=== PATIENT | male | born 1935 | race Caucasian/White ===

== ENCOUNTER 2016-05-19 14:39 | Emergency (ER) | payer MEDICARE ==
[~2016-05-19 14:39] MED LIST: AMOX-366 PO; HAL05 PO; OXYC5TAB72 PO
--- NOTE | 2016-05-19 14:40 | ED.REPORT ---
HPI-General Illness Date of Service May 19, 2016 ED Provider: Lenora Perdomo MD 80 year old male with a hx of Alzheimer's Disease who presents to the ED via EMS due to increased confusion. History is severely limited. Pt was sent with no description other than "increased confusion". He is unable to provide any history and is disoriented to place, time and person. Nursing Notes Stated Complaint: INCREASED CONFUSION Nursing Notes Reviewed: Yes Allergies: Coded Allergies: No Known Allergies (Unverified , 04/12/16) Scheduled Haloperidol (Haloperidol) 0.5 Mg Tablet 0.5 MG PO BID Scheduled PRN Acetaminophen (Acetaminophen) 325 Mg Tablet 650 MG PO Q4H PRN PRN For Pain oxyCODONE (oxyCODONE) 5 Mg Tablet 5 MG PO Q4H PRN PRN For Moderate Pain General Time Seen by MD: 14:40 Chief Complaint Altered mental status Hx Obtained From: Patient, EMS Unable to Obtain Hx: Mental status Arrived By: Ambulance Past Medical History Past Medical History Alzheimer's Disease Past Surgical History Laparscopic cholecystectomy Mar 2016, otherwise unknown Smoking History Former Smoker Social History Other Social History: Lives in jail Ambulatory Status Independent Review of Systems Unable to Obtain ROS Mental status Full Review of Systems Neurologic: Reports: Confusion Physical Exam Vital Signs Vital Signs Date Time Temp Pulse Resp B/P Pulse Ox O2 Delivery O2 Flow Rate FiO2 05/19/16 14:48 36.3 75 17 161/61 97 Room Air Initial VS: Reviewed Head / Eyes: Atraumatic, Normocephalic, PERRL ENT: Conjunctiva normal, No scleral icterus Neck: Full range of motion Respiratory: Breath sounds normal, Clear to auscultation, No respiratory distress Cardiovascular: Regular rate & rhythm, Heart sounds normal, Intact distal pulses Abdomen / GI: Soft, Non-tender, No guarding, No rebound, No distention Extremities: Vascular intact, Neuro intact, No swelling, No tenderness ( eczematous patches to legs. ) Skin: Warm, Dry, No cyanosis General/Constitutional: Awake, Alert Neurologic: No motor deficits Mental Status: Positive: Disoriented to person, Disoriented to place, Disoriented to time Cantankerous and can get combative. Can be calmed and redirected. Interpretation & Diagnostics Lab Results Interpretation Result Diagram: 05/19/16 1530 05/19/16 1530 Test 05/19/16 15:30 05/19/16 15:39 White Blood Count 8.7th/mm3 (3.8-10.1) Red Blood Count 4.31mil/mm3 (4.40-5.80) Hemoglobin 13.9g/dL (13.8-17.2) Hematocrit 40.3% (41.0-50.0) Mean Corpuscular Volume 93.5fL (81-100) Mean Corpuscular Hemoglobin 32.3pg (27.0-35.0) Mean Corpuscular Hemoglobin Concent 34.5% (32.0-37.0) Red Cell Distribution Width 13.7% (12.3-15.4) Platelet Count 208bil/L (150-400) Neutrophils (%) (Auto) 59.9% (40-74) Lymphocytes (%) (Auto) 24.4% (14-46) Monocytes (%) (Auto) 9.0% (4-12) Eosinophils (%) (Auto) 5.9% (0-5) Basophils (%) (Auto) 0.6% (0-3) Sodium Level 139mEq/L (134-144) Potassium Level 4.3mEq/L (3.5-5.2) Chloride Level 102mEq/L (97-108) Carbon Dioxide Level 22mmol/L (18-29) Blood Urea Nitrogen 18mg/dL (8-27) Creatinine 0.81mg/dL (0.76-1.27) Estimat Glomerular Filtration Rate 98mL/min (>59) Glucose Level 103mg/dL (60-99) Calcium Level 9.1mg/dL (8.5-10.1) Total Bilirubin 0.4mg/dL (0.0-1.2) Aspartate Amino Transf (AST/SGOT) 18U/L (0-50) Alanine Aminotransferase (ALT/SGPT) 16U/L (0-44) Alkaline Phosphatase 105U/L (25-160) Total Protein 6.9g/dL (6.4-8.4) Albumin 4.1g/dL (3.4-5.0) Hold Sheikh Top Tube Received (Received) Urine Color Yellow (YELLOW) Urine Appearance Clear (CLEAR,HAZY) Urine pH 6.5 (5.0-8.0) Urine Specific [place] 1.025 (1.003-1.035) Urine Protein Negativemg/dL (NEG,TRACE) Urine Glucose (UA) Negativemg/dL (NEGATIVE) Urine Ketones Negativemg/dL (NEGATIVE) Urine Occult Blood Negative (NEGATIVE) Urine Nitrite Negative (NEGATIVE) Urine Bilirubin Negative (NEGATIVE) Urine Urobilinogen Normalmg/dL (NORMAL) Urine Leukocyte Esterase Negative (NEGATIVE) Urine RBC 0-2/hpf (0-2) Urine WBC 0-5/hpf (0-5) Urine Epithelial Cells Few/hpf (NONE-MOD) Urine Crystals None seen (NONE SEEN) Urine Bacteria Few/hpf (NONE-FEW) Urine Hyaline Casts None/lpf (NONE) Urine Granular Casts None seen (NONE SEEN) Urine Waxy Casts None seen (NONE SEEN) Urine Red Blood Cell Casts None seen (NONE SEEN) Urine White Blood Cell Casts None seen (NONE SEEN) Urine Mucus None seen (None Seen) Urine Trichomonas None seen (NONE SEEN) Urine Yeast None (NONE SEEN) Urinalysis Comment None Urine Culture Reflexed Not indicated Re-Eval/Medical Decision Time of Eval: 16:42 Re-Evaluation/Progress Note: Discussed plan for discharge and follow up. All questions addressed. Counseled Regarding: Diagnosis, Lab results, Need for follow-up, Need for admission Discharge & Departure Primary Impression: Dementia Dementia type: Alzheimer's disease Alzheimer's disease onset: unspecified onset Dementia behavioral disturbance: with behavioral disturbance Qualified Code: G30.8 - Other Alzheimer's disease Additional Impression: Agitation Disposition: Home Discharge Condition All VS Reviewed: Yes Condition: Stable Additional Instructions: Your workup today showed no medical abnormalities. Specifically, no evidence of infection, pneumonia, bladder infection, or stroke. Given 5 mg of IM Haldol. At this point the best explanation for the increased agitation is your baseline dementia. I do not have any additional options for you at this point. We will hope you get back to your memory care unit. I hope you do well. Referrals: NOPCP (PCP) Scribe Attestation Portions of this note were transcribed by Nallely Willingham. I, (Dr. Perdomo) personally performed the history, physical exam and medical decision-making; I reviewed and confirmed the accuracy of the information in the transcribed note. Signed by: Nallely Willingham. 05/19/2016, 2114 Lenora Perdomo MD May 19, 2016 14:40 Nallely Willingham May 19, 2016 14:56
[2016-05-19 14:48] VITALS: BP 161/61; PULSE 75; RESP 17; O2SAT 97
[2016-05-19] MEDS ORDERED: Haloperidol 5 mg/mL Inj IM ONE (15:20)
[2016-05-19 15:40] LABS: BASOPHILS % (AUTO) 0.6 % (0-3); EOSINOPHILS % (AUTO) 5.9 % (0-5); Mean Corpuscular Hemoglobin 32.3 pg (27.0-35.0); Mean Corpuscular Volume 93.5 fL (81-100); NEUTROPHILS % (AUTO) 59.9 % (40-74); Platelet Count 208 bil/L (150-400)
[2016-05-19 15:52] LABS: APPEARANCE,URINE CLEAR (CLEAR,HAZY); COLOR,URINE YELLOW (YELLOW); OCCULT BLOOD,URINE NEGATIVE (NEGATIVE); PH,URINE 6.5 (5.0-8.0); UROBILINOGEN,URINE NORMAL (NORMAL)
[2016-05-19] MEDS ORDERED: ACET325T51 PO (16:16)
[2016-05-19 18:19] VITALS: BP 156/62; PULSE 71; RESP 17; O2SAT 98
== END 2016-05-19 18:20 | disposition home or self-care (01) ==
LOC: SED 14:39
DX: G30.8 Other Alzheimer's disease (principal); R45.1 Restlessness and agitation; Z87.891 Personal history of nicotine dependence
CPT/HCPCS: 36415; 80053; 81000; 85025; 96372; 99284; J1630

== ENCOUNTER 2016-10-13 10:10 | Inpatient (IN) | payer MEDICARE ==
[2016-10-13] VITALS (14 sets, daily range): BP systolic 101–170; BP diastolic 51–75; PULSE 43–73; RESP 14–31; O2SAT 97–100
[~2016-10-13] VITALS: Ht 170.2 cm; Wt 79.0 kg
[~2016-10-13 10:10] MED LIST changes: +ACET325T51 PO; -AMOX-366 PO
--- NOTE | 2016-10-13 10:13 | ED.REPORT ---
HPI-General Illness Date of Service Oct 13, 2016 ED Provider: Jr Teixeira MD Patient is a 80 year old male with a history of Alzheimer's disease who presents to the ED via EMS due to being apneic and unresponsive. Per EMS, the patient was apneic for 30 seconds at a time with a pulse. Patient did not have pinpoint pupils before EMS arrived. The group home reported that the patient has not been recently sick and has not fallen. Per EMS, they tried to intubate the patient twice prior to arrival to the ED but was unsuccessful so they placed a jn tube. Nursing Notes Stated Complaint: UNRESPONSIVE Nursing Notes Reviewed: Yes Allergies: Coded Allergies: No Known Allergies (Unverified , 04/12/16) Scheduled Polyethylene Glycol 1000 (Polyethylene Glycol) 500 Gm Powder 500 GM MC DAILY Prazosin (Prazosin) 1 Mg Capsule 1 MG PO HS Scheduled PRN Acetaminophen (Acetaminophen) 325 Mg Tablet 650 MG PO Q4H PRN PRN For Pain General Time Seen by MD: 10:18 Chief Complaint Other (apneic) Hx Obtained From: EMS Unable to Obtain Hx: Patient condition Arrived By: Ambulance Sudden in Onset?: Yes Onset Occurred: Just prior to arrival Symptom Duration: Since onset Recent Healthcare: No recent hospitalization, Recent doctor visit Past Medical History Past Medical History Notes: Code status: full code Past Medical History Alzheimer's Disease Past Surgical History Laparscopic cholecystectomy Mar 2016, otherwise unknown Smoking History Former Smoker Social History Other Social History: Lives in group home Ambulatory Status Independent Review of Systems Unable to Obtain ROS Patient condition, Intubated Physical Exam Vital Signs Vital Signs Date Time Temp Pulse Resp B/P Pulse Ox O2 Delivery O2 Flow Rate FiO2 10/13/16 12:22 54 15 138/71 97 Mechanical Ventilator 10/13/16 11:35 34.3 62 16 143/64 98 Mechanical Ventilator 10/13/16 10:40 73 31 170/75 98 Mechanical Ventilator 10/13/16 10:34 98 Initial VS: Reviewed Alertness: Positive: Unresponsive intubated Head / Eyes: Atraumatic, Normocephalic, EOMI pupils 2-3 RESPIRATORY: minimal spontaneous respirations Cardiovascular: Heart rate NL, Regular rhythm, Heart sounds NL Abdomen: Atraumatic, Soft, Non-tender Skin: Atraumatic, Color NL, No rash, Warm, Dry Rectum / Perineum: Atraumatic Guiac positive NEURO: Glascow coma scale: 7 Interpretation & Diagnostics Lab Results Interpretation Result Diagram: 10/13/16 1030 10/13/16 1030 Test 10/13/16 10:30 10/13/16 11:45 White Blood Count 6.2th/mm3 (3.8-10.1) Red Blood Count 4.10mil/mm3 (4.40-5.80) Hemoglobin 13.4g/dL (13.8-17.2) Hematocrit 38.3% (41.0-50.0) Mean Corpuscular Volume 93.4fL (81-100) Mean Corpuscular Hemoglobin 32.7pg (27.0-35.0) Mean Corpuscular Hemoglobin Concent 35.0% (32.0-37.0) Red Cell Distribution Width 12.8% (12.3-15.4) Platelet Count 186bil/L (150-400) Neutrophils (%) (Auto) 56.5% (40-74) Lymphocytes (%) (Auto) 30.5% (14-46) Monocytes (%) (Auto) 7.5% (4-12) Eosinophils (%) (Auto) 4.4% (0-5) Basophils (%) (Auto) 0.6% (0-3) Prothrombin Time 10.6sec (8.1-12.5) Prothromb Time International Ratio 0.99ratio D-Dimer < 0.50mg/L FEU (<0.50) Sodium Level 141mEq/L (134-144) Potassium Level 4.4mEq/L (3.5-5.2) Chloride Level 105mEq/L (97-108) Carbon Dioxide Level 19mmol/L (18-29) Blood Urea Nitrogen 14mg/dL (8-27) Creatinine 0.70mg/dL (0.76-1.27) Estimat Glomerular Filtration Rate 116mL/min (>59) Glucose Level 132mg/dL (60-99) Lactic Acid Level 2.6mmol/L (0.4-2.0) Calcium Level 8.3mg/dL (8.5-10.1) Magnesium Level 1.8mg/dL (1.6-2.6) Total Bilirubin 0.8mg/dL (0.0-1.2) Aspartate Amino Transf (AST/SGOT) 20U/L (0-50) Alanine Aminotransferase (ALT/SGPT) 17U/L (0-44) Alkaline Phosphatase 73U/L (25-160) Troponin T < 0.010ug/L (0.0-0.011) Total Protein 6.5g/dL (6.4-8.4) Albumin 3.8g/dL (3.4-5.0) Urine Color Yellow (YELLOW) Urine Appearance Clear (CLEAR,HAZY) Urine pH 6.5 (5.0-8.0) Urine Specific [place] 1.010 (1.003-1.035) Urine Protein Negativemg/dL (NEG,TRACE) Urine Glucose (UA) Negativemg/dL (NEGATIVE) Urine Ketones Negativemg/dL (NEGATIVE) Urine Occult Blood Small (NEGATIVE) Urine Nitrite Negative (NEGATIVE) Urine Bilirubin Negative (NEGATIVE) Urine Urobilinogen Normalmg/dL (NORMAL) Urine Leukocyte Esterase Negative (NEGATIVE) Urine RBC 3-10/hpf (0-2) Urine WBC 0-5/hpf (0-5) Urine Epithelial Cells Occasional/hpf (NONE-MOD) Urine Crystals None seen (NONE SEEN) Urine Bacteria None/hpf (NONE-FEW) Urine Hyaline Casts Occasional/lpf (NONE) Urine Granular Casts None seen (NONE SEEN) Urine Waxy Casts None seen (NONE SEEN) Urine Red Blood Cell Casts None seen (NONE SEEN) Urine White Blood Cell Casts None seen (NONE SEEN) Urine Mucus Present (None Seen) Urine Trichomonas None seen (NONE SEEN) Urine Yeast None (NONE SEEN) Urinalysis Comment None Urine Culture Reflexed Not indicated Lab Results Interpretation: BLOOD GAS REPORT: pH 7.143/pCO2 31/pO2 106/cHCO3 (P) 19.9/cBase (B) -4.1 ECG Interpretation ECG Interpretation: sinus rhythm with non specific ST changes in the inferior leads no obvious ischemic changes Time: 10:26 Interpreted by: ED physician Normal ECG Interpretation: Normal rate (70) X-Ray Chest Interpretation Chest Xray Interpretation: IMPRESSION: 1. Endotracheal tube tip approximately 3 cm from the natasha. 2. Patchy peripheral left basilar opacities are nonspecific but may reflect pneumonia or aspiration. Recommend attention on followup. Dictated by: Ryan Welch M.D. on 10/13/2016 at 10:57 Approved by: Ryan Welch M.D. on 10/13/2016 at 11:03 View: Portable, 1 view Interpretation / Wet Read by: Interpret - Radiologist CT Head Interpretation IMPRESSION: 1. No acute process. 2. Sinus disease. Dictated by: Lucas Ruiz M.D. on 10/13/2016 at 10:56 Approved by: Lucas Ruiz M.D. on 10/13/2016 at 10:57 Interpretation / Wet Read by: Interpret - Radiologist Re-Eval/Medical Decision Med Decision/Clinical Course Patient arrives sedated with a [place] Coma Scale of 7, reportedly having an apneic and unresponsive at his care facility. Initial bedside evaluation failed to show any obvious abnormality with the exception of the Jn airway in the oropharynx. Pupils are equal and symmetric, is no evidence of trauma. His Jn airway is exchanged for a cuffed endotracheal tube via glide scope. There may be evidence of aspiration pneumonia and possibly GI bleed. He does have a guaiac positive brown stool in scant amount of blood via the NG tube. Workup is really otherwise not remarkable. He will be admitted to intensive care. 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: Agrees with eval, Agrees with plan, Accepts admit Counseled Regarding: Diagnosis, Lab results, Need for admission Discharge & Departure Primary Impression: Respiratory failure Chronicity: unspecified Respiratory failure complication: unspecified whether with hypoxia or hypercapnia Qualified Code: J96.90 - Respiratory failure, unspecified, unspecified whether with hypoxia or hypercapnia Additional Impressions: Aspiration pneumonia Aspiration pneumonia type: unspecified Laterality: unspecified laterality Lung location: unspecified part of lung Qualified Code: J69.0 - Pneumonitis due to inhalation of food and vomit Altered level of consciousness Disposition: ADMITTED TO HOSPITAL Discharge Condition All VS Reviewed: Yes Condition: Stable Crit Care Except Billable Proc Time Spent: 75-104 minutes Services Performed: Patient management by me, Time spent at bedside, Reviewing test results, Reviewing imaging, Documentation in record Critical Care Notes: See MDM Scribe Attestation Portions of this note were transcribed by Luna Gamble. I, Dr. Veronica So personally performed the history, physical exam and medical decision-making; I reviewed and confirmed the accuracy of the information in the transcribed note. Signed by: Ulises Floyd, 10/13/16 and Jr Bergman DO Oct 13, 2016 10:13 Vira Gamble Oct 13, 2016 10:24
[2016-10-13] MEDS ORDERED: 0.9% Sodium Chloride 1,000 ML IV ONE (10:28)
[2016-10-13] MEDS ORDERED: Propofol 10 mg/mL 20 mL Inj ONE (10:28)
[2016-10-13] MEDS: 0.9% Sodium Chloride 1,000 ML IV SCH ×4 (10:30→19:55)
[2016-10-13 10:56] LABS: BASOPHILS % (AUTO) 0.6 % (0-3); EOSINOPHILS % (AUTO) 4.4 % (0-5); MONOCYTES % (AUTO) 7.5 % (4-12); Mean Corpuscular Hemoglobin 32.7 pg (27.0-35.0); Mean Corpuscular Volume 93.4 fL (81-100); NEUTROPHILS % (AUTO) 56.5 % (40-74); Platelet Count 186 bil/L (150-400)
--- NOTE | 2016-10-13 10:58 | DRSVH ---
PROCEDURE: CT BRAIN WITHOUT CONTRAST ([id number]) INDICATIONS: aloc TECHNIQUE: Noncontrast 4.5 mm thick angled axial sections acquired from the foramen magnum to the vertex, with c oronal reformats. COMPARISON: None. FINDINGS: Image quality: Excellent. CSF spaces: Basal cisterns are patent. No extra-axial fluid collections. The ventricles are symmet padmaja in size and shape. Brain: No intracranial bleeds or masses. There is cerebral volume loss for age, with resultant vent ricular and sulcal prominence. 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 There are p eriventricular and deep white matter chronic small vessel ischemic changes. There is intracranial in ternal carotid artery atherosclerosis. Skull and face: Calvarium and visualized facial bones appear intact, without suspicious lesions. Sinuses: There is moderate bilateral ethmoid air cell mucosal thickening. Mild sphenoid sinus mucosal thickening. Mastoids are clear. IMPRESSION: 1. No acute process. 2. Sinus disease. Dictated by: Lucas Ruiz M.D. on 10/13/2016 at 10:56 Approved by: Lucas Ruiz M.D. on 10/13/2016 at 10:57
--- NOTE | 2016-10-13 11:04 | DRSVH ---
PROCEDURE: X-RAY CHEST ONE VIEW, PORTABLE ([id number]) INDICATIONS: resp failure TECHNIQUE: One view of the chest was acquired. COMPARISON: [facility], CR, XR CHEST 1VW (PORTABLE), 04/12/2016, 11:46. FINDINGS: Surgical changes and devices: There is an endotracheal tube with the tip approximately 3 cm from the natasha. Lungs and pleura: No pleural effusions or pneumothorax. There are few patchy peripheral left basila r opacities. Mediastinum: Mediastinal contours appear unchanged. Heart size is normal. Bones and chest wall: No suspicious bony lesions. Overlying soft tissues appear unremarkable. IMPRESSION: 1. Endotracheal tube tip approximately 3 cm from the natasha. 2. Patchy peripheral left basilar opacities are nonspecific but may reflect pneumonia or aspiration. Recommend attention on followup. Dictated by: Ryan Welch M.D. on 10/13/2016 at 10:57 Approved by: Ryan Welch M.D. on 10/13/2016 at 11:03
[2016-10-13] MEDS ORDERED: levoFLOXacin Inj 750 MG in IV Premix 1 EACH IV ONE (11:05)
[2016-10-13] MEDS ORDERED: Piperacillin-Tazo 3.375 Gm Inj 3.375 GM in Dextrose 5% Minibag Plus 50 ML IV ONE (11:05)
[2016-10-13 11:06] LABS: D-Dimer < 0.50 mg/L FEU (<0.50); INR 0.99 ratio
[2016-10-13] MEDS ORDERED: PRAZ1CAP2 PO (11:07)
[2016-10-13] MEDS ORDERED: POLY454P4 MC (11:07)
--- NOTE | 2016-10-13 11:11 | ABG ---
DateTimeAnalyzed 11:03:43 -_ pH ____7.413 - 7.350 7.450 pCO2 ___31.2__ -mmHg 35.0 45.0 pO2 106 -mmHg 69.0 116 HCO3- ___19.9__ -mmol/L 22.0 26.0 ABE ___-4.1__ -mmol/L tHb ___13.5__ -g/dL O2Hb ___97.9__ -% COHb ____1.8__ -% 1.5 MetHb ____0.0__ -% sO2 ___99.6__ -% FIO2 ___21.0__ -% Drawn By btl - Date/Time Notified____ 11:10:00 -_ Oxygen Device 1 VENTILATOR - Notified By BTL - Notified Whom ___Dr. O'sivan - K+ ____4.3__ -mmol/L tO2 ___18.7__ -Vol% Ugo test N/A -
[2016-10-13 11:34] LABS: Magnesium 1.8 mg/dL (1.6-2.6)
[2016-10-13 11:40] LABS: TROPONIN T < 0.010 ug/L (0.0-0.011)
[2016-10-13] MEDS ORDERED: Pantoprazole 4 mg/mL 10 mL Inj IVPUSH ONE (11:55)
[2016-10-13] MEDS ORDERED: Pantoprazole Inj 80 MG, Pharmacy To Mix 1 EA in 0.9% Sodium Chloride 80 ML IV ONE ×2 (11:55)
[2016-10-13 12:18] LABS: APPEARANCE,URINE CLEAR (CLEAR,HAZY); COLOR,URINE YELLOW (YELLOW); OCCULT BLOOD,URINE SMALL (NEGATIVE); PH,URINE 6.5 (5.0-8.0)
[2016-10-13 12:19] LABS: UROBILINOGEN,URINE NORMAL (NORMAL)
[2016-10-13] MEDS ORDERED: Succinylcholine Chloride 20 mg/mL 5 mL Inj IVPUSH ONE (12:39)
[2016-10-13] MEDS ORDERED: Senna-Docusate 8.6-50 mg Tablet PO PRN (12:45)
[2016-10-13] MEDS ORDERED: Alum-Mag Hydrox-Simeth 30 mL Suspension PO PRN (12:45)
[2016-10-13] MEDS ORDERED: Ondansetron 2 mg/mL 2 mL Inj IVPUSH PRN (12:45)
[2016-10-13] MEDS ORDERED: Polyethylene Glycol (PEG) 17 Gm Powder PO PRN (12:45)
--- NOTE | 2016-10-13 13:44 | DRSVH ---
PROCEDURE: X-RAY CHEST ONE VIEW, PORTABLE ([id number]) INDICATIONS: Post intubation to verify ETT placement TECHNIQUE: One view of the chest was acquired. COMPARISON: [facility], CR, XR CHEST 1VW (PORTABLE), 10/13/2016, 10:30. FINDINGS: Surgical changes and devices: Endotracheal tube with the tip approximately 3-4 cm above the natasha. E nteric tube with the tip not included on the study however below the gastroesophageal junction Lungs and pleura: No pleural effusions or pneumothorax. Streaky retrocardiac opacities. Lung volume s are decreased. Mediastinum: Mediastinal contours appear normal. Heart size is normal. Bones and chest wall: No suspicious bony lesions. Overlying soft tissues appear unremarkable. IMPRESSION: Streaky retrocardiac opacities possibly aspiration/atelectasis. Endotracheal tube with the tip approximately 3-4 cm above the natasha Dictated by: Levi Vargas M.D. on 10/13/2016 at 13:41 Approved by: Levi Vargas M.D. on 10/13/2016 at 13:42
[2016-10-13] MEDS ORDERED: Vancomycin Inj 1,500 MG in 0.9% Sodium Chloride 500 ML IV ONE (14:15)
--- NOTE | 2016-10-13 14:16 | ABG ---
DateTimeAnalyzed 14:09:00 -_ pH ____7.412 - 7.350 7.450 pCO2 ___31.1__ -mmHg 35.0 45.0 pO2 146 -mmHg 69.0 116 HCO3- ___19.4__ -mmol/L 22.0 26.0 ABE ___-3.8__ -mmol/L -2.0 2.0 tHb ___12.7__ -g/dL O2Hb ___97.3__ -% COHb ____1.1__ -% MetHb ____1.1__ -% sO2 ___99.5__ -% 25.0 FIO2 ___50.0__ -% PEEP ____5.0__ -cmH2O Vt __500.0__ -L Drawn By as - Date/Time Notified____ 14:16:00 -_ Spontaneous_RR ___16.0__ -b/min Oxygen Device 1 VENTILATOR - Notified By AMS - Notified Whom LIA COTTON, RN - B 755 -mmHg tO2 ___17.6__ -Vol% Ugo test _Positive -
[2016-10-13] MEDS: fentaNYL 2,500 mCg/250 mL 2,500 MCG in IV Premix 1 EACH IV SCH (15:00)
[2016-10-13] MEDS ORDERED: Atropine 1 mg/10 mL (Code) Syringe IVPUSH PRN (16:00)
[2016-10-13] MEDS ORDERED: Dexmedetomidine Inj 400 MCG in 0.9% Sodium Chloride 100 ML IV SCH (16:27)
--- NOTE | 2016-10-13 17:08 | PCM.HPMED ---
Subjective Date of Service Oct 13, 2016 Primary Provider: Admitting Physician: Iain Pritchett MD Primary Care Physician: Camilo Attending Physician: Iain Pritchett MD Admit Status: From the Emergency Department Chief Complaint: unresponsive History of Present Illness: Mr. Song Nunez is a 80 year old man with history of Alzheimer's disease who presented to the emergency department via emergency medical services (EMS) due to being found unresponsive and not breathing. It was reported that he was apneic for 30 seconds at a time with a pulse. He did not have pinpoint pupils before EMS arrived. The shelter, [facility], reported that the patient was not recently sick and had not recently fallen. EMS tried to intubate he patient twice but were unsuccessful so a Jn tube was placed. In the emergency department, his Glascow score was 7, and he had an endotracheal tube placed via glide scope. He had a positive guaiac stool, and there was a scant amount of blood in the nasogastric tube. History obtained from medical records because patient is intubated and sedated at time of interview Review of Systems: Unable to obtain, patient is sedated and intubated Allergies Coded Allergies: No Known Allergies (Unverified , 04/12/16) Home Medications Medication RX elsewhere Directions clobetasol 0.05 % topical cream Y apply by topical route 2 times every day a thin layer to the affected area(s) Medication Directions acetaminophen 325 mg capsule Take 2 capsule by oral route every 8 hrs prazosin 1 mg capsule take 1 capsule by oral route every bedtime polyethylene glycol 3350 17 gram/dose oral powder take (17G) by oral route every day mixed with 8 oz. water, juice, soda, coffee or tea Ultra-Light Rollator misc 1 four-wheeled walker with brakes PMH From the patient's medical records: Alzheimer's dementia with behavioral disturbance Surgical History ERCP, biliary sphincterotomy, and stone extraction on 04/12/16 Laparoscopic cholecystectomy on 04/14/16 Family History No significant family history in medical records Unable to obtain due to patient being intubated and sedated Social History Hx Alcohol Use: No Hx Substance Use: No Smoking Status: Former Smoker Living Arrangement: Other (shelter) Exam Vital Signs Vital Sign - Last Date Time Temp Pulse Resp B/P Pulse Ox O2 Delivery O2 Flow Rate FiO2 6/1/17 16:08 48 101/51 99 25 10/13/16 16:00 36.4 16 Mechanical Ventilator Exam General: Elderly gentleman who is currently intubated and sedate, well-developed , well-nourished HEENT: Normocephalic, atraumatic. External ears without defect. Anicteric sclerae, moist conjunctivae. Neck: Supple. No bruits. No lymphadenopathy or thyromegaly. Cardiovascular: Bradycardic with a regular rhythm with no murmurs, rubs, or gallops appreciated Pulmonary: Breath sounds equal bilaterally. Scattered crackles bilaterally. Abdomen: Bowel tones present. Soft, nondistended. No hepatosplenomegaly or masses appreciated. Extremities: No clubbing, cyanosis, edema, or lymphadenopathy appreciated. Skin: Cool and dry; no rash or ulcers appreciated. Neurological and psychiatric: Sedated. Lab and Diagnostics Result Diagram: 10/13/16 1410 10/13/16 1030 X-Rays, CTs and MRIs PROCEDURE: X-RAY CHEST ONE VIEW, PORTABLE IMPRESSION: 1. Endotracheal tube tip approximately 3 cm from the natasha. 2. Patchy peripheral left basilar opacities are nonspecific but may reflect pneumonia or aspiration. Recommend attention on followup. Approved by: Ryan Welch M.D. on 10/13/2016 at 11:03 PROCEDURE: CT BRAIN WITHOUT CONTRAST IMPRESSION: 1. No acute process. 2. Sinus disease. Approved by: Lucas Ruiz M.D. on 10/13/2016 at 10:57 PROCEDURE: X-RAY CHEST ONE VIEW, PORTABLE IMPRESSION: Streaky retrocardiac opacities possibly aspiration/atelectasis. Endotracheal tube with the tip approximately 3-4 cm above the natasha Approved by: Levi Vargas M.D. on 10/13/2016 at 13:42 12-lead ECG Sinus rhythm with no significant ST segment changes Assessment & Plan Mr. Song Nunez is a 80 year old man with history of Alzheimer's disease who presented to the emergency department via emergency medical services (EMS) due to being found unresponsive and not breathing at his shelter. Acute encephalopathy, present on admission, active. - Differential diagnosis includes but not limited to: hypoxic-ischemic from cardiac or cerebral etiology, toxic from medication overdose, infectious from aspiration pneumonia, hepatic, uremic, or metabolic. At this time, troponin level and d-dimer are negative, and WBC, liver function tests, renal function tests, and electrolytes are within normal limits. Lactic acid elevated. - CT brain without contrast does not show an acute intracranial hemorrhage but intracranial internal carotid artery atherosclerosis was noted. Consider further workup with carotid ultrasound. - Blood and sputum cultures ordered - TSH, vitamin B12, ESR, and CK-MB ordered - Echocardiogram ordered - IV Zosyn and vancomycin - Patient is currently intubated and sedated - Pulmonology consulted and following. Their time and recommendations are appreciated. Acute hypoxic respiratory failure, present on admission, active. - Found apneic at shelter and intubated in the emergency department - Pulmonology consulted. Possible aspiration pneumonia, present on admission, active. - Streaky retrocardiac opacities on chest x-ray - IV Zosyn as above - Chest x-ray tomorrow morning to continue monitor Lactic acidosis, acute, present on admission, active. - Lactic acid 2.6 on admission - IV normal saline at 125 ml/hour - Continue to trend until normal Hyperglycemia, acute, present on admission, resolved. - Glucose 132 on admission - Continue to monitor Alzheimer's dementia, chronic. - Hold prazosin for now - Continue to monitor Zofran as needed for nausea or vomiting. Miralax and Senna as needed for constipation. Famotidine twice per day. CODE STATUS: Need to contact his shelter, [facility], for advanced directive information VTE Mechanical Devices: Intermittant Pneumatic CD Attending Statement The patient was seen and examined together with Dr. Garcia on 10/13/2016 and I agree with the history, exam and plan as outlined in the note above. . Annette Garcia DO Oct 13, 2016 17:08 Iain Pritchett MD Oct 13, 2016 20:37
[2016-10-13 17:24] LABS: TROPONIN T < 0.010 ug/L (0.0-0.011)
[2016-10-13] MEDS: Heparin 5,000 Unit/mL Inj SUBQ SCH ×2 (17:51→23:56)
[2016-10-13] MEDS: Chlorhexidine 0.12% 15 mL Oral Solution MT SCH ×3 (17:51→23:56)
--- NOTE | 2016-10-13 18:01 | CONS ---
[address] [address] CONSULTATION REPORT PATIENT: RENA MCQUEEN : 1935 MR#: [id number] ADMIT: 10/13/2016 JOB ID: [id number] DATE OF SERVICE: 10/13/2016 REQUESTING PHYSICIAN: Iain Pritchett MD. REASON FOR CONSULTATION: Loss of consciousness. HISTORY OF PRESENT ILLNESS: The patient is a 80-year-old, male with severe dementia living in a care facility. He has no particular medical problems other than dementia. This morning, paramedics were called because the patient was found apneic and unresponsive. Paramedics described the patient as apneic for 30 seconds at a time with a pulse. Did not have pinpoint pupils prior to their arrival. Nursing reports that he has not been sick and has not fallen. EMS tried to intubate the patient twice, but was unsuccessful and therefore placed a Jn tube. The patient was successfully intubated in the emergency department. No other history is available. Primary physician indicates that he takes Prazosin. ALLERGIES: None known. PAST MEDICAL HISTORY: Primary physician indicates that the patient had a similar episode in the remote past. Underwent cholecystectomy with resolution of the symptoms. CODE STATUS: FULL CODE. No other history is available. REVIEW OF SYSTEMS: Unable to obtain as the patient is sedated on the ventilator. OBJECTIVE: Temperature initially 34.4, currently 36.1. Pulse of 47 to 62, respiratory rate 16 with ventilator set at 16, blood pressure 127/64, O2 sat on an FiO2 of 40%, PEEP of 7, is 100%. General appearance: Well developed, well nourished, well-kempt male, sedated on ventilator. Eyes: Conjunctivae are pink. No scleral icterus. Pupils about 2 mm in diameter. Questionably relaxed to light. Nose and throat could not be examined. Lymph nodes are not palpable. Neck is supple. Thyroid not palpable. Chest: Fairly good breath sounds bilaterally. Somewhat diminished at the bases. Maybe a few crackles at the left base laterally. No use of accessory muscles. On occasion, initiates breaths but rather infrequently. On FiO2 of 40%, PEEP of 7, tidal volume 500, respiratory rate of 16, the patient showed a peak inspiratory pressure of 20, plateau of 17. PEEP was set at 7, measured at 7. Heart: Regular rhythm. Somewhat slow rate. Heart tones seem normal. No murmurs appreciated. Abdomen is soft. Nondistended. No apparent tenderness. A few intermittent bowel tones. Liver and spleen not palpable. No masses palpable. Quiet. Extremities: No clubbing, cyanosis, or pretibial edema. LABORATORY DATA: Showed a white count of 6200 with 56 polymorphonuclears, 30 lymphs, 7 monos, 4 eosinophils. Hemoglobin 13.4. Repeat 4 hours later is stable. Platelet count 186,000. Sodium 141, potassium 4.4, chloride 105, CO2 is 19, BUN 14, creatinine 0.7, glucose 132, lactic acid mildly elevated at 2.6, upper limits of normal being 2. Calcium 8.3 with albumin of 3.8. Magnesium 1.8. Total bilirubin 0.8. AST 40. Transaminase is normal as is alkaline phosphatase. Troponin T undetectable. Albumin 3.8 with a total protein 6.5. INR is 0.99. UA shows urine to be clear. Specific gravity 1.010. DIAGNOSTIC STUDIES: Chest x-ray shows endotracheal tube 3-4 cm above the main natasha. No effusions. A few patchy left basilar opacities. CT scan of the brain shows some moderate bilateral ethmoid air cell mucosal thickening. Otherwise, brain scan normal with ventricles symmetric in size and shape. Some cerebral volume loss for age. Intracranial internal carotid artery atherosclerosis described. Arterial blood gases on FiO2 of 0.5, PEEP of 5, tidal volume of 500, rate of 16 shows a pO2 of 146, pCO2 of 31, pH 7.41. ASSESSMENT: 1. Loss of consciousness. The patient described as apneic with a pulse. Rather suspicious for overdose. I guess he could have taken some medications not on his list. Will see how this evolves. Other more likely possibilities are arrhythmias, myocardial infarction, pulmonary embolism in trauma, but there does not appear to be any evidence for any of those entities. CT scan of the head not particularly worrisome. Will have to discuss the carotid artery calcifications with Radiology to see whether ultrasound or more specific testing is in order. 2. Dementia. Patient is a FULL CODE. Will speak with family to verify his functional status. May be a bit difficult to extubate as he will probably be somewhat rambunctious. May want to replace propofol with fentanyl. Will see how he does with regard to agitation and mental status. 3. Probable aspiration. The patient is already started on broad-spectrum antibiotics. Will continue same pending further evaluation. PLAN: 1. Vent changes to FiO2 0.25, PEEP of 5, PRVC mode with a tidal volume of 500, rate of 16. 2. If the patient becomes agitated, replace propofol with fentanyl. 3. Check Mag phos and procalcitonin with next blood draw. May need to also consider possibly a TSH. 4. Discontinue the IV sodium chloride, at least decreasing its rate. 5. Continue current antibiotic regimen which has been chosen to include vancomycin, Zosyn and levofloxacin. Time spent in critical care with discussions not only with the ED but with the patient's relative and the patient's primary care physician 1 hour 4 minutes.
[2016-10-13] MEDS: Piperacillin-Tazo 3.375 Gm Inj 3.375 GM in Dextrose 5% Minibag Plus 50 ML IV SCH ×2 (18:33→23:54)
[2016-10-13 18:39] LABS: Creatine Kinase 103 U/L (21-232)
[2016-10-13] MEDS: Vancomycin Dose per Pharmacist XX SCH (19:23)
[2016-10-13] MEDS: Propofol Inj 1,000,000 MCG in IV Premix 1 EACH IV SCH (19:54)
[2016-10-14] VITALS (11 sets, daily range): BP systolic 102–138; BP diastolic 48–75; PULSE 44–49; RESP 12–16; O2SAT 94–100
[2016-10-14] MEDS: Vancomycin Inj 750 MG in 0.9% Sodium Chloride 250 ML IV SCH ×2 (02:14→16:26)
[2016-10-14] MEDS: Propofol Inj 1,000,000 MCG in IV Premix 1 EACH IV SCH (02:14)
[2016-10-14 02:57] LABS: BASOPHILS % (AUTO) 0.4 % (0-3); EOSINOPHILS % (AUTO) 3.2 % (0-5); MONOCYTES % (AUTO) 10.2 % (4-12); Mean Corpuscular Hemoglobin 32.5 pg (27.0-35.0); Mean Corpuscular Volume 93.7 fL (81-100); NEUTROPHILS % (AUTO) 59.7 % (40-74); Platelet Count 168 bil/L (150-400)
[2016-10-14] MEDS: Chlorhexidine 0.12% 15 mL Oral Solution MT SCH ×5 (03:03→20:20)
[2016-10-14] MEDS: 0.9% Sodium Chloride 1,000 ML IV SCH ×3 (03:14→20:21)
--- NOTE | 2016-10-14 04:13 | ABG ---
DateTimeAnalyzed 04:09:00 -_ pH ____7.522 - 7.350 7.450 pCO2 ___21.4__ -mmHg 35.0 45.0 pO2 ___70.1__ -mmHg 69.0 116 HCO3- ___17.4__ -mmol/L 22.0 26.0 ABE ___-3.6__ -mmol/L -2.0 2.0 tHb ___12.0__ -g/dL O2Hb ___94.2__ -% COHb ____1.3__ -% MetHb ____1.1__ -% sO2 ___96.5__ -% 25.0 FIO2 ___25.0__ -% PEEP ____5.0__ -cmH2O Set_RR ___16.0__ -b/min Vt __500.0__ -L Drawn By MK - Date/Time Notified____ 04:13:00 -_ Spontaneous_RR ___16.0__ -b/min Oxygen Device 1 VENTILATOR - Notified By MK - Notified Whom Dr Fuiamono - B 758 -mmHg tO2 ___15.9__ -Vol% Ugo test _Positive -
[2016-10-14 04:15] LABS: Magnesium 1.6 mg/dL (1.6-2.6); Phosphorus 1.9 mg/dL (2.5-4.9)
[2016-10-14] MEDS ORDERED: Potassium Phos (mEq) Inj 40 MEQ in Dextrose 5% 500 ML IV ONE (04:30)
[2016-10-14] MEDS ORDERED: Vancomycin Dose per Pharmacist XX SCH (08:30)
[2016-10-14] MEDS: Heparin 5,000 Unit/mL Inj SUBQ SCH ×2 (08:56→16:27)
[2016-10-14] MEDS: Vancomycin Dose per Pharmacist XX SCH (09:04)
[2016-10-14] MEDS: Piperacillin-Tazo 3.375 Gm Inj 3.375 GM in Dextrose 5% Minibag Plus 50 ML IV SCH ×2 (09:04→16:27)
--- NOTE | 2016-10-14 09:51 | DRSVH ---
PROCEDURE: X-RAY CHEST ONE VIEW, PORTABLE ([id number]) INDICATIONS: aspiration pneumonia TECHNIQUE: One view of the chest was acquired. COMPARISON: , CR, XR CHEST 1VW (PORTABLE), 10/13/2016, 13:06. FINDINGS: Surgical changes and devices: Endotracheal tube with the tip approximately 2.6 cm above the natasha. E nteric tube with the tip not included on the study however below the gastroesophageal junction Lungs and pleura: Trace left pleural effusion no pneumothorax. Streaky retrocardiac opacities unchang ed. Lung volumes are decreased. Mediastinum: Mediastinal contours appear normal. Heart size is normal. Bones and chest wall: No suspicious bony lesions. Overlying soft tissues appear unremarkable. IMPRESSION: 1. Small right pleural effusion and retrocardiac airspace opacity consistent with atelectasis, aspira tion or pneumonia. Dictated by: Braxton Moore RRA Interpreted: Jose Reyes MD on 10/14/2016 at 9:48 Transcribed by: ALBERTO on 10/14/2016 at 9:51 Approved by: Jose Reyes M.D. on 10/14/2016 at 11:37
--- NOTE | 2016-10-14 10:07 | PCM.PNMED ---
Subjective Date of Service Oct 14, 2016 Subjective Mr. Song Nunez is a 80 year old man with history of Alzheimer's disease who presented to the emergency department via emergency medical services (EMS) due to being found unresponsive and not breathing. He remains intubated and sedated. His nephew, Jj, was at bedside this morning. He reports that prior to admission his uncle was walking and eating independently. He was speaking without issue. He was requiring assistance with toileting. He would see him frequently and at least once per week. They did not previously have a conversation about his uncle's wishes before. Exam Vital Signs Vital Sign - Last Date Time Temp Pulse Resp B/P Pulse Ox O2 Delivery O2 Flow Rate FiO2 10/14/16 04:28 49 104/48 97 25 10/14/16 03:27 Ventilator 10/14/16 03:01 37.1 16 Intake and Output 10/13/16 10/13/16 10/14/16 Cumulative From/Thru 15:00 23:00 07:00 10/13/16 11:42 - 10/14/16 06:23 Intake Total 1000 ml 813 ml 2569 ml 4382 ml Output Total 300 ml 300 ml Balance 1000 ml 513 ml 2569 ml 4082 ml Intake IV Total 1000 ml 813 ml 2569 ml 4382 ml Output Urine Total 300 ml 300 ml Exam General: Elderly gentleman who is currently intubated and sedate, well-developed , well-nourished HEENT: Normocephalic, atraumatic. External ears without defect. Neck: Supple. Cardiovascular: Bradycardic with a regular rhythm with no murmurs, rubs, or gallops appreciated Pulmonary: Breath sounds equal bilaterally. Scattered crackles bilaterally. Abdomen: Bowel tones present. Soft, nondistended. No hepatosplenomegaly or masses appreciated. Extremities: No clubbing, cyanosis, edema, or lymphadenopathy appreciated. Skin: Cool and dry; no rash or ulcers appreciated. Neurological and psychiatric: Sedated but opens eyes spontaneously but did not open eyes to verbal or painful stimuli. IVs and Medications Medications Reviewed: Medications were reviewed in detail Lab and Diagnostics Result Diagram: 10/14/16 0241 10/14/16 0241 X-Rays, CTs and MRIs PROCEDURE: X-RAY CHEST ONE VIEW, PORTABLE IMPRESSION: 1. Endotracheal tube tip approximately 3 cm from the natasha. 2. Patchy peripheral left basilar opacities are nonspecific but may reflect pneumonia or aspiration. Recommend attention on followup. Approved by: Ryan Welch M.D. on 10/13/2016 at 11:03 PROCEDURE: CT BRAIN WITHOUT CONTRAST IMPRESSION: 1. No acute process. 2. Sinus disease. Approved by: Lucas Ruiz M.D. on 10/13/2016 at 10:57 PROCEDURE: X-RAY CHEST ONE VIEW, PORTABLE IMPRESSION: Streaky retrocardiac opacities possibly aspiration/atelectasis. Endotracheal tube with the tip approximately 3-4 cm above the natasha Approved by: Levi Vargas M.D. on 10/13/2016 at 13:42 12-lead ECG Sinus rhythm with no significant ST segment changes Assessment & Plan Mr. Song Nunez is a 80 year old man with history of Alzheimer's disease who presented to the emergency department via emergency medical services (EMS) due to being found unresponsive and not breathing at his detention. Acute encephalopathy, present on admission, active. - Differential diagnosis includes but not limited to: hypoxic-ischemic from cardiac or cerebral etiology, toxic from medication overdose, infectious from aspiration pneumonia, hepatic, uremic, or metabolic. At this time, troponin level and d-dimer are negative, and WBC, liver function tests, renal function tests, and electrolytes are within normal limits. Lactic acid elevated. Given his bradycardia, arrhythmia is likely etiology - CT brain without contrast does not show an acute intracranial hemorrhage but intracranial internal carotid artery atherosclerosis was noted. Consider further workup with carotid ultrasound. - Blood and sputum cultures ordered - TSH, ESR, and CK-MB unremarkable - Vitamin B12 pending - Echocardiogram ordered - Vancomycin discontinued at MRSA negatvie - IV Zosyn continued until tomorrow morning and will stop if procalcitonin is stable - Consider cardiology consultation tomorrow for bradycardia Acute hypoxic respiratory failure, present on admission, active. - Found apneic at detention and intubated in the emergency department - Patient is currently intubated and sedated - Pulmonology consulted and following. Their time and recommendations are appreciated. - Palliative care consulted and following. Their time and recommendations are appreciated. Possible aspiration pneumonia, present on admission, active. - Streaky retrocardiac opacities on chest x-ray - IV Zosyn as above - Chest x-ray tomorrow morning to continue monitor Lactic acidosis, acute, present on admission, resolved. - Lactic acid 2.6 on admission Hyperglycemia, acute, present on admission, resolved. - Glucose 132 on admission - Continue to monitor Alzheimer's dementia, chronic. - Hold prazosin for now - Continue to monitor Zofran as needed for nausea or vomiting. Miralax and Senna as needed for constipation. Famotidine twice per day. Pain Evaluation: Adequate Pain Control VTE Mechanical Devices: Intermittant Pneumatic CD Attending Statement The patient was seen and examined together with Dr. Garcia on 10/14/2016 and I agree with the history, exam and plan as outlined in the note above. . Annette Garcia DO Oct 14, 2016 06:31 Iain Pritchett MD Oct 15, 2016 16:25
--- NOTE | 2016-10-14 11:54 | PROG NOTE ---
[address] [address] PROGRESS NOTE PATIENT: RENA MCQUEEN : 1935 MR#: [id number] ADMIT: 10/13/2016 JOB ID: [id number] DATE: 10/14/2016 PULMONARY CRITICAL CARE FOLLOW UP NOTE: PROBLEM: Loss of consciousness. SUBJECTIVE: None. OBJECTIVE: Vital signs showed a temperature of 36.7 with a T-max of 37.3. Pulse high 40s. Respiratory rate 12 with the ventilator set at 12. Blood pressure 122/75, O2 sat on FiO2 of 25%, PEEP of 5, is 98%. I and O shows 1.8 L in, 0.3 L out. Sedated. Does arouse if stimulated. Eyes: Conjunctivae pink. Chest is clear with good breath sounds bilaterally. With a tidal volume of 500, rate of 12, FiO2 of 0.26 and PEEP of 6, peak inspiratory pressure is 22, plateau 18, PEEP is set at 6, measured at 6. Heart: Regular rhythm with occasional slight irregularity. Heart tones seem normal. Abdomen is soft. Rare bowel tones. Extremities: No pretibial edema. LABORATORY DATA: His white cell count is 9100 with 59 polymorphonuclears, 26 lymphocytes, 10 monocytes, 3 eosinophils. Hemoglobin 11.8, somewhat decreased from hemoglobin of 13.5 g 12 hours previously. Platelet count 168,000 and slowly decreasing. Sodium 138, potassium 3.3, chloride 106, CO2 17, BUN 11, creatinine 0.8, glucose 106. Lactic acid is 1.9 with a peak of 2.6 on admission. Calcium 7.9 with an albumin of 3.3, phosphorus 1.9. Magnesium 1.6. Bilirubin 1. AST and ALT normal. Alkaline phos normal. Troponin T is 0.01. Procalcitonin 0.09. The patient currently receiving potassium phosphorus infusion. INR 0.9. D-dimer undetectable. MRSA nasal smear pending. Sputum shows a few polys. Moderate mixed praful. Chest x-ray shows increased opacification in the retrocardiac airspace area. Arterial blood gases on FiO2 of 0.25, rate of 16, tidal volume of 500, PEEP of 5, shows a pO2 of 70, pCO2 21, a pH of 7.52. Bicarbonate is 17.4. ASSESSMENT: Loss of consciousness. Still unclear as to the etiology of his loss of consciousness. Ventilation rather easy. In fact, we were over ventilating him and respiratory rate was decreased in order to ameliorate the significant respiratory alkalemia. 1. The loss of consciousness still unclear. He is somewhat bradycardic and at times with minimal sedation just does dropped his heart rate down into the 30s. Would wonder about an arrhythmia as the etiology of his loss of consciousness. Not really feeling much with regard to the respiratory status. No evidence for overdose though that still could not be ruled out as with the patient's dementia if he had any access to medications might have taken some accidentally. 2. Respiratory alkalosis. Likely due to vent settings. They have been changed to decrease the minute ventilation. PLAN: 1. K-Phos rider. 2. Continue mechanical ventilation and will decrease respiratory rate to 12. 3. Would like to see him more awake so we could evaluate his mental status and hopefully get some clues as to the etiology of the loss of consciousness. 4. CT scan with PE protocol as pulmonary emboli have been associated with syncopal episodes. TIME: Time spent so far in critical care 40 minutes.
--- NOTE | 2016-10-14 12:19 | DRSVH ---
[facility] [address] [place] [address] Echocardiogram Report Name: RENA MCQUEEN Study Date: 10/14/2016 Height: 67 in Hospital Exam Location: [facility] Weight: 179 lb Gender: Male BSA: 1.9 m2 : 1935 Age: 80 yrs BP: 104/48 mmHg Reason For Study: Bradycardia Ordering Physician: Performed By: Kesha MurphyCar[facility] Interpretation Summary The patient was in sinus bradycardia with heart rates between 48-50 bpm during the exam. The left ventricle is normal in size. The ejection fraction is estimated to be 60-65%. The right ventricle is grossly normal size. Right ventricular systolic function is at the lower limits of normal. There is mild to moderate mitral regurgitation. The aortic valve is mildly calcified. Leaflet mobility is mildly reduced. There is mild aortic regurgitation. There is mild tricuspid regurgitation. Right ventricular systolic pressure is estimated to be 28 mmHg plus the clinically estimated CVP which cannot be estimated on this exam. The IVC has a measurement of 25 mm. Inspiratory collapse cannot be assessed because of mechanical ventilation, thus CVP cannot be estimated.. Procedure: A two-dimensional transthoracic echocardiogram with color flow and Doppler was performed. The study quality was technically adequate. There is no prior echocardiogram noted for this patient. The patient was in sinus bradycardia with heart rates between 48-50 bpm during the exam. Left Ventricle: The left ventricle is normal in size. Left ventricular wall thickness is borderline increased. Proximal septal thickening is noted. There is no echo evidence for significant left ventricular outflow tract obstruction. There is no thrombus. The ejection fraction is estimated to be 60-65%. There are no focal wall motion abnormalities. Spectral Doppler of the mitral inflow yields an E/A ratio that is between 0.8 and 1.5. The E/E' ratio is abnormal. Right Ventricle: The right ventricle is grossly normal size. Right ventricular systolic function is at the lower limits of normal. Atria: Both atria are normal in size. There is no Doppler evidence for an interatrial shunt. The thickening of interatrial septum suggests lipomatous hypertrophy. Mitral Valve: The mitral valve leaflets are slightly calcified. There is mild mitral annular calcification. There is mild to moderate mitral regurgitation. Aortic Valve: The aortic valve is trileaflet. The aortic valve is mildly calcified. Leaflet mobility is mildly reduced. There is no hemodynamically significant valvular aortic stenosis. There is mild aortic regurgitation. Tricuspid Valve: The tricuspid valve is not well visualized, but is grossly normal. There is mild tricuspid regurgitation. Right ventricular systolic pressure is estimated to be 28 mmHg plus the clinically estimated CVP which cannot be estimated on this exam. Pulmonic Valve: The pulmonic valve is not well seen, but is grossly normal. There is trace pulmonic regurgitation. Great Vessels: The aortic root is normal size. There is aortic root sclerosis/calcification. The ascending aorta is at the upper limits of normal in size. The IVC has a measurement of 25 mm. Inspiratory collapse cannot be assessed because of mechanical ventilation, thus CVP cannot be estimated.. Pericardium/ Pleura There is no pericardial effusion. There is an anterior echo-free space consistent with a fat pad. MMode/2D Measurements & Calculations LVIDd: 4.9 cm RA long axis LVOT diam LVIDs: 3.0 cm LA A2 area: 18.3 cm FS: 39.0 % LA A4 area: 23.4 cm RA area AoV Opening EPSS: 0.68 cm LA length (vol): 6.2 cm IVSd: 1.1 cm LA vol: 58.3 ml : 13.2 cm Ao root diam LVPWd: 1.0 cm LA vol index RA vol : 28.6 ml Aortic Jxn RA IVC diam: 2.5 cm : 14.8 mm2 asc Aorta Diam: 3.3 cm LV barrios. diameter/BSA LV sys. diameter/BSA RVD1 (basal) TAPSE: 2.3 cm (cm/m^2): 2.6 (cm/m^2): 1.6 Doppler Measurements & Calculations Ao V2 max MV E max gael MV E/A: 1.2 TR max gael : 155.6 cm/sec : 91.5 cm/sec Med Peak E' Gael : 264.9 cm/sec Ao max P.7 mmHgMV A max gael TR max PG Ao mean PG : 78.9 cm/sec E/E' med: 13.4 : 28.1 mmHg MV P1/2t: 56.2 msec Lat Peak E' Gael PA V2 max LVOT Max Gael : 97.6 cm/sec : 91.6 cm/sec E/E' lat: 11.5 PA mean PG E/e' average FELIPE(I,D): 2.7 cm PA Accel Time sev ratio: 0.61 : 0.06 sec AI P1/2t : 616.7 msec AI dec slope : 209.5 cm/s2c MV dec time MV P1/2t max gael Ao V2 mean LV V1 max PG : 0.19 sec : 110.7 cm/sec MVA(P1/2t): 3.9 cm2 Ao V2 VTI: 35.8 cmLV V1 VTI FELIPE(V,D): 2.6 cm2 : 21.8 cm PA V2 mean FELIPE indexed to BSA : 54.7 cm/sec (cm^2/m^2): 1.4 Reading Physician:PM
--- NOTE | 2016-10-14 15:16 | CONS ---
[address] [address] CONSULTATION REPORT PATIENT: RENA MCQUEEN : 1935 MR#: [id number] ADMIT: 10/13/2016 JOB ID: [id number] DATE OF SERVICE: 10/14/2016 INFECTIOUS DISEASE CONSULTATION: I thank Dr. Pritchett for this timely consult. REASON FOR CONSULTATION: Pulmonary infiltrate in a patient who is status post inpatient just admitted to the ICU. HISTORY OF PRESENT ILLNESS: The patient is a 72-year-old man with Alzheimer disease who lives in a memory care unit. EMS was called because the patient was unresponsive and apneic. He was apneic for about 30 seconds or more but had a pulse apparently the whole time. The EMS tried to intubate the patient but was unsuccessful so a Jn tube was used and he was brought to the emergency department where an endotracheal tube was placed. According to notes in the chart and review with the [facility] staff, the patient had not fallen, had not had fevers, had not had chills and did not appear sick until the moment he was found down I think which was yesterday, October 13. Since then, he has been intubated in the ICU and has been essentially unresponsive. He has not required vasopressor agents and his respiratory requirements on the ventilator have been very minimal. PAST MEDICAL HISTORY: 1. Alzheimer dementia with behavioral disturbances. 2. Laparoscopic cholecystectomy in April 2016 for stones in the common bile duct which had previously been addressed by ERCP on April 12, 2016. SOCIAL HISTORY: Is unavailable in this intubated, demented patient but it is stated in the records that he is a former smoker. He is not an alcohol user. FAMILY HISTORY: Is not obtainable in this intubated gentleman. REVIEW OF SYSTEMS: Not available in this intubated gentleman. PHYSICAL EXAMINATION: Reveals an elderly gentleman lying supine and intubated in the ICU. He is being actively ventilated. He appears younger than his stated age of 80. He is afebrile. Current temperature is 36.7. He was hypothermic when he arrived in the ED at 34.3, but since then, has had normal temperature. His pulse is currently in the low 50s. Respiratory rate 16, blood pressure 128/59. He is on 25% FiO2, 5 of PEEP and saturating 99% at this moment. The patient is unresponsive and does not open his eyes or do anything during the examination. His head is without trauma. Eyes: Midrange pupils that are equal. No conjunctival or scleral abnormalities. Nose is normal. Oral endotracheal tube, orogastric tube normal. Neck is normal as well. No adenopathy or JVD. Lungs are notable for a few crackles perhaps at the left base but not much. Cardiac tones distant, bradycardic and without notable murmur. No pacer is palpated. The patient's abdomen is soft and nontender. He does not suprapubic fullness. He does have a Lindo catheter in. His penis is notable for some balanitis which is of jpil-ze-weuruypt severity without classic herpetic lesions. The lower extremities are warm and well perfused. There is no edema. No cellulitis. No skin breakdown and no evidence of any swollen joints or decubitus type ulcerations. As noted, the abdomen is soft and nontender without organomegaly or ascites. There is no rash anywhere and really very little on physical except for the balanitis. Neurologic examination, of course, cannot be done as he is unresponsive. LABORATORIES: Include white count 6000 yesterday, 9000 today, both with completely normal differential. Sedimentation rate is 3. Procalcitonin is 0.09 and that was a measurement this morning. Creatinine 0.85. LFTs are normal. Urinalysis without white cells. Urine tox screen is pending. Blood cultures are negative. Sputum was obtained from the endotracheal tube. A few polys, a few epithelial cells. Gram stain negative and culture is normal praful. MRSA screen of the nose was sent but somehow is not yet available. Chest x-ray done yesterday on admission shows patchy peripheral left basilar opacity. A follow up chest x-ray done today shows a small trace left pleural effusion with some streaky retrocardiac opacities that have not changed. IMPRESSION: It seems highly unlikely that this patient's presentation was triggered by pneumonia. There is no history of any symptoms of respiratory problem or fever prior to his being found suddenly unresponsive and this is more likely cardiac or neurologic rather than infectious. Whether or not he could have aspirated during his placement of his Jn tube and intubation is unclear though it is certainly quite possible. There is very little evidence that he has any severe infection ongoing, however, given normal white count, normal procalcitonin and near normal chest x-ray. It is also notable that the nurses report there are essentially no secretions from the endotracheal tube and he is saturating 99% on 25% FiO2. RECOMMENDATIONS: 1. If the MRSA screen of the nares is negative, I would drop the vanco. 2. I would stop the levo at this point. 3. I would continue with Zosyn through tomorrow morning but would stop all antibiotics including vanc and Zosyn if the MRSA screen of the nares is negative and if the procalcitonin tomorrow remains low and there is no evidence of infection. 4. We will continue to follow this patient with you.
--- NOTE | 2016-10-14 16:18 | PCM.CONPAL ---
Date of Service Oct 14, 2016 Date of Hospital Admission: Oct 13, 2016 at 12:38 Date of Palliative Consult: Oct 14, 2016 Requesting Provider: Iain Pritchett MD Reason Palliative Care Consult: Goals of Care Discussion Hospital Unit @time of consult: Critical Care Palliative Care Recommendation Summary of palliative recommendations: Patient is a 80-year-old male with significant past medical history of Alzheimer 's disease presented via EMS for unresponsiveness and apnea. Paramedics reported the patient was apneic for approximately 30 seconds but had a pulse. Paramedics attempted to intubate the patient en route but was unsucessful. A Jn tube was placed by the paramedics and the patient was subsequently intubated in the Emergency Department. Chest x-ray on admit shows patchy peripheral left basilar opacities. CT brain shows sinus disease but no acute process. Palliative medicine consult to assist in determination of goals of care. -Symptom management (Pain/other): Patient is sedated and on mechanical ventilator. Patient appear comfortable at this time. Continue management per medical and critical care teams. -DPOA/Advanced Directives/POLST: No prior POLST. Patient's nephew, Jj, is the patient's guardian. The patient's wishes were discussed with Jj and he wishes to continue aggressive care, though he states that the patient would not want to be maintained long-term on machines if there is no meaningful hope of survival. Palliative medicine will continue to follow. Will plan on helping patient and his family generate a POLST with their wishes at time of discharge. -Family/emotional support: Patient seems to have good support from his nephew. Patient Goals: 1. Patient's family wants to be told the truth about his illness, even if it is unpleasant. 2. Patient's family would like to be told prognosis when it can be predicted, to better guide treatment decisions. 3. Patient's family would choose quality of life over quantity of life, and defines quality as maintaining the patient's functionality and not being supported by machines or being bedbound. Additional Medical Diagnoses with primary management by Hospitalist team include : Acute encephalopathy, present on admission, active. Acute hypoxic respiratory failure, present on admission, active. Possible aspiration pneumonia, present on admission, active. Lactic acidosis, acute, present on admission, resolved. Hyperglycemia, acute, present on admission, resolved. Alzheimer's dementia, chronic. . Problems: End of Life Preferences Full code at this time Disposition To be determined pending hospital course Resuscitation Status Resuscitation Status: CPR: Attempt Resuscitation POLST Updates/Changes Previous POLST?: No Pt History History of Present Illness Per admission H&P: Mr. Song Nunez is a 80 year old man with history of Alzheimer's disease who presented to the emergency department via emergency medical services (EMS) due to being found unresponsive and not breathing. It was reported that he was apneic for 30 seconds at a time with a pulse. He did not have pinpoint pupils before EMS arrived. The intermediate, [facility], reported that the patient was not recently sick and had not recently fallen. EMS tried to intubate he patient twice but were unsuccessful so a Jn tube was placed. In the emergency department, his Glascow score was 7, and he had an endotracheal tube placed via glide scope. He had a positive guaiac stool, and there was a scant amount of blood in the nasogastric tube. History obtained from medical records because patient is intubated and sedated at time of interview. Palliative medicine consulted to assist in determination of goals of care. Case discussed with his medical team. Case was also discussed at length during critical care rounds with nursing staff and the critical care team. Prior to visiting, reviewed the patient's records in the EMR in detail, both for this and his previous admissions. In speaking with patient's nephew, Jj, he mentions the patient was living independently in his own home prior to moving to the memory care facility about a year ago. Nephew says the patient can be forgetful due to his dementia but in spite of this has what he feels is a fairly good quality of life. He reports the patient being in good spirits and is still rather functional and was even seen jogging at his assisted living facility. Nephew states the patient's wishes regarding end-of-life treatment was never talked about since he did not want to stress out the patient and felt it was inappropriate at the time to discuss. Patient currently lives in [facility]. Etiology of the patient's presentation remains unclear. He apparently was found down at the facility, apathetic but with pulses. Difficult intubation, finally successful here at ER. Evaluation to this point has not revealed a clear cause for his apparent acute respiratory failure/arrest. Evaluation continues under the management of his hospitalist/critical care teams. Past Medical History Significant PMH Noted: Alzheimer's dementia Social History Occupation: Retired; formerly worked at [employer] Social Support: Good support provided by patient's nephew Living Situation: From [facility] ADLs ADL Patient Status: Baseline ADL Ambulation: Full ADL Dressing: Occasional assistance necessary ADL Feeding: Full ADL Hygene/bathing: Occasional assistance necessary ADL Transfers: Full Allergy Allergies Reviewed: Yes Medications Current Medications: Current Medications Sodium Chloride 1,000 ml @ 100 mls/hr Q10H IV Last administered on 10/13/16 17: 51; Admin Dose 100 MLS/HR; Start 10/13/16 at 10:30; Stop 10/13/16 at 19:16; Status DC Propofol/Premix 100 ml @ 0 mls/hr Q0M IV Last administered on 10/14/16 02:14; Admin Dose 12.2 MLS/HR; Start 10/13/16 at 10:30 Pharmacy Consult 1 ea 1 ea DAILY XX; Start 10/14/16 at 08:30; Status UNV Sodium Chloride 1,000 ml @ 125 mls/hr Q8H IV Last administered on 10/14/16 03: 14; Admin Dose 125 MLS/HR; Start 10/13/16 at 12:41 Famotidine 20 mg Q12 PO Last administered on 10/14/16 08:55; Admin Dose 20 MG; Start 10/13/16 at 20:30 Ondansetron HCl 4 to 8 mg Q4H PRN IVPUSH; Start 10/13/16 at 12:45 Senna 2 tablet BID PRN PO; Start 10/13/16 at 12:45 Al Hydrox/Mg Hydrox/Simethicone 30 ml Q6 PRN PO; Start 10/13/16 at 12:45 Polyethylene Glycol 17 gm DAILY PRN PO; Start 10/13/16 at 12:45 Heparin Sodium (Porcine) 5,000 unit Q8 SUBQ Last administered on 10/14/16 08:56 ; Admin Dose 5,000 UNIT; Start 10/13/16 at 16:30 Chlorhexidine Gluconate 5 ml Q4 MT Last administered on 10/14/16 08:55; Admin Dose 5 ML; Start 10/13/16 at 16:30 Pharmacy Consult 1 ea 1 ea DAILY XX Last administered on 10/14/16 09:04; Admin Dose 1 EA; Start 10/13/16 at 14:07 Fentanyl/Premix 250 ml @ 4 mls/hr Q24H IV Last administered on 10/13/16 15:00; Admin Dose 4 MLS/HR; Start 10/13/16 at 14:33 Atropine Sulfate 0.5 mg 0.5 mg ONCE PRN IVPUSH; Start 10/13/16 at 16:00 Dexmedetomidine HCl 400 mcg/ Sodium Chloride 104 ml @ 0 mls/hr Q0M IV; Start 10/13/16 at 16:27 Piperacillin Sod/ Tazobactam Sod 3.375 gm/Dextrose/ Water 50 ml @ 12.5 mls/hr Q8 IV Last administered on 10/14/16 09:04; Admin Dose 12.5 MLS/HR; Start at 17:32 Vancomycin HCl/ Sodium Chloride 250 ml @ 166.667 mls/hr Q12H IV Last administered on 10/14/16 02:14; Admin Dose 166.667 MLS/HR; Start 10/14/16 at 02: 00 Scheduled Polyethylene Glycol 1000 (Polyethylene Glycol) 500 Gm Powder 500 GM MC DAILY Prazosin (Prazosin) 1 Mg Capsule 1 MG PO HS Scheduled PRN Acetaminophen (Acetaminophen) 325 Mg Tablet 650 MG PO Q4H PRN PRN For Pain Current Treatments Ventilator: Yes Oxygen: Yes IV Fluids: Yes Antibiotics: Yes Telemetry: Yes Critical Care Unit: Yes Objective Findings Exam Vital Sign - Last Date Time Temp Pulse Resp B/P Pulse Ox O2 Delivery O2 Flow Rate FiO2 10/14/16 07:35 47 102/49 97 25 10/14/16 03:27 Ventilator 10/14/16 03:01 37.1 16 Intake and Output 10/13/16 10/13/16 10/14/16 Cumulative From/Thru 15:00 23:00 07:00 10/13/16 11:42 - 10/14/16 06:23 Intake Total 1000 ml 813 ml 2569 ml 4382 ml Output Total 300 ml 300 ml Balance 1000 ml 513 ml 2569 ml 4082 ml Intake IV Total 1000 ml 813 ml 2569 ml 4382 ml Output Urine Total 300 ml 300 ml General: Unresponsive (Sedated and intubated on mechanical ventilator), No acute distress HEENT: Atraumatic, Other (Endotracheal tube and OG tube in place) Heart: No Murmurs/Rubs/Gallops, Bradycardia Lungs: Other (Few crackles but otherwise clear bilaterally) Abdomen: Benign, Bowel Tones x4, Soft Neuro: Spontaneous Eye Opening, Other (Unable to perform full neurological examination given sedation) Extremities: Pulses Diminished Lab/Diagnostics Lab and Imaging results reviewed in detail in EMR. Time spent Total time 65 minutes; >50% face to face with patient and family, providing counselling regarding plans and recommendations, and in care coordination with his medical teams. Of the above total time, 15 minutes counseling for advanced care planning with the patient's nephew/guardian Attending Statement The patient was seen and examined together with Dr. Velez on 10/14/16 and I agree with the history, exam and plan as outlined in the note above. Bebo Velez DO Oct 14, 2016 09:31 Trey Alvarez MD Oct 14, 2016 17:33
--- NOTE | 2016-10-14 16:48 | DRSVH ---
PROCEDURE: US VENOUS LEG DUPLEX BILATERAL INDICATIONS: LOC. pls eval for DVT TECHNIQUE: Real-time imaging, as well as color and pulse Doppler interrogation, were performed of the deep veins of both legs from the inguinal ligament to the popliteal fossa. COMPARISON: None. FINDINGS: The deep veins are normally compressible, and free of intraluminal thrombus. Color and pu lse Doppler demonstrate normal phasic intravascular flow. There is normal augmentation response to d istal compression maneuver. IMPRESSION: No deep venous thrombosis identified within either the left or right lower extremities. Dictated by: Braxton QUIROZ Interpreted: Anitha Goff MD on 10/14/2016 at 16:36 Transcribed by: RIKKI on 10/14/2016 at 16:47 Approved by: Anitha Goff MD, PhD on 10/14/2016 at 17:09
[2016-10-14] MEDS: fentaNYL 2,500 mCg/250 mL 2,500 MCG in IV Premix 1 EACH IV SCH (20:20)
[2016-10-15] VITALS (11 sets, daily range): BP systolic 105–165; BP diastolic 49–74; PULSE 40–74; RESP 12–21; O2SAT 93–97
[2016-10-15] MEDS: Propofol Inj 1,000,000 MCG in IV Premix 1 EACH IV SCH ×2 (00:03→07:12)
[2016-10-15] MEDS: Chlorhexidine 0.12% 15 mL Oral Solution MT SCH ×4 (00:03→12:26)
[2016-10-15] MEDS: Piperacillin-Tazo 3.375 Gm Inj 3.375 GM in Dextrose 5% Minibag Plus 50 ML IV SCH ×3 (00:31→16:41)
[2016-10-15] MEDS: Heparin 5,000 Unit/mL Inj SUBQ SCH ×3 (00:32→16:38)
[2016-10-15] MEDS ORDERED: Vancomycin Serum Trough XX ONE (01:30)
[2016-10-15] MEDS ORDERED: Potassium Chloride 20 mEq/15 mL Oral Soln(K 3 - 3.7 & Creat < 2) TUBE ONE (04:55)
--- NOTE | 2016-10-15 05:09 | ABG ---
DateTimeAnalyzed 05:04:00 -_ pH ____7.444 - 7.350 7.450 pCO2 ___26.6__ -mmHg 35.0 45.0 pO2 ___73.6__ -mmHg 69.0 116 HCO3- ___17.9__ -mmol/L 22.0 26.0 ABE ___-4.5__ -mmol/L -2.0 2.0 tHb ___11.8__ -g/dL O2Hb ___94.1__ -% COHb ____1.2__ -% MetHb ____0.8__ -% sO2 ___96.0__ -% 25.0 FIO2 ___25.0__ -% PEEP ____5.0__ -cmH2O Set_RR ___12.0__ -b/min Vt __500.0__ -L Drawn By blf - Date/Time Notified____ 05:08:00 -_ Spontaneous_RR ___12.0__ -b/min Oxygen Device 1 VENTILATOR - Notified By blf - Notified Whom WESTON NDIAYE RN - B 758 -mmHg tO2 ___15.6__ -Vol% OrderingPhysicianInitials bak - Ugo test _Positive -
[2016-10-15 06:01] LABS: BASOPHILS % (AUTO) 0.7 % (0-3); Mean Corpuscular Hemoglobin 32.7 pg (27.0-35.0); Mean Corpuscular Volume 94.3 fL (81-100); NEUTROPHILS % (AUTO) 55.3 % (40-74); Platelet Count 167 bil/L (150-400)
--- NOTE | 2016-10-15 08:33 | DRSVH ---
PROCEDURE: X-RAY CHEST ONE VIEW, PORTABLE ([id number]) INDICATIONS: intubated TECHNIQUE: One view of the chest was acquired. COMPARISON: [facility], CR, XR CHEST 1VW (PORTABLE), 10/14/2016, 5:17. FINDINGS: Surgical changes and devices: ET tube projects approximately 2.6 cm superior to the natasha. Lungs and pleura: No pleural effusions or pneumothorax. Patchy opacity in the left lung base is stab le compared to prior examination. Mediastinum: Mediastinal contours appear normal. Heart size is normal. Bones and chest wall: No suspicious bony lesions. Overlying soft tissues appear unremarkable. IMPRESSION: Stable examination compared to 10/14/16. Left basilar opacity is unchanged. ET tube remains approximately 2.6 cm superior to the natasha. Dictated by: Anitha Goff MD, PhD on 10/15/2016 at 8:30 Approved by: Anitha Goff MD, PhD on 10/15/2016 at 8:31
[2016-10-15] MEDS: 0.9% Sodium Chloride 1,000 ML IV SCH ×2 (09:26→13:35)
--- NOTE | 2016-10-15 11:12 | PCM.PNMED ---
Subjective Date of Service Oct 15, 2016 Subjective Mr. Song Nunez is a 80 year old man with history of Alzheimer's disease who presented to the emergency department via emergency medical services (EMS) due to being found unresponsive and not breathing. He was intubated and sedated at time of exam. Exam Vital Signs Vital Sign - Last Date Time Temp Pulse Resp B/P Pulse Ox O2 Delivery O2 Flow Rate FiO2 10/15/16 07:52 36.7 42 12 105/52 95 Mechanical Ventilator 25 Intake and Output 10/14/16 10/14/16 10/15/16 Cumulative From/Thru 15:00 23:00 07:00 10/13/16 11:42 - 10/15/16 05:46 Intake Total 2299 ml 1508 ml 8189 ml Output Total 1100 ml 1025 ml 2425 ml Balance 1199 ml 483 ml 5764 ml Intake IV Total 2274 ml 1383 ml 8039 ml Tube Irrigant 25 ml 125 ml 150 ml Output Urine Total 1050 ml 975 ml 2325 ml Gastric Drainage Total 50 ml 50 ml 100 ml # Bowel Movements 0 0 0 Exam General: Elderly gentleman who is currently intubated and mildly sedated, well- developed, well-nourished HEENT: Normocephalic, atraumatic. External ears without defect. Neck: Supple. Cardiovascular: Bradycardic with a regular rhythm with no murmurs, rubs, or gallops appreciated Pulmonary: Breath sounds equal bilaterally Abdomen: Bowel tones present. Soft, nondistended. Extremities: No clubbing, cyanosis, or edema appreciated. Skin: Cool and dry; no rash or ulcers appreciated. Neurological and psychiatric: Opens eyes spontaneously and to verbal stimuli. He follows commands and moves all four extremities. IVs and Medications Medications Reviewed: Medications were reviewed in detail Lab and Diagnostics Result Diagram: 10/15/16 0543 10/15/16 0145 X-Rays, CTs and MRIs PROCEDURE: CT BRAIN WITHOUT CONTRAST IMPRESSION: 1. No acute process. 2. Sinus disease. Approved by: Lucas Ruiz M.D. on 10/13/2016 at 10:57 PROCEDURE: X-RAY CHEST ONE VIEW, PORTABLE IMPRESSION: Stable examination compared to 10/14/16. Left basilar opacity is unchanged. ET tube remains approximately 2.6 cm superior to the natasha. Approved by: Anitha Goff MD, PhD on 10/15/2016 at 8:31 PROCEDURE: US VENOUS LEG DUPLEX BILATERAL IMPRESSION: No deep venous thrombosis identified within either the left or right lower extremities. Approved by: Anitha Goff MD, PhD on 10/14/2016 at 17:09 12-lead ECG Sinus rhythm with no significant ST segment changes Assessment & Plan Mr. Song Nunez is a 80 year old man with history of Alzheimer's disease who presented to the emergency department via emergency medical services (EMS) due to being found unresponsive and not breathing at his [facility]. Acute encephalopathy, present on admission, improving. - Differential diagnosis includes but not limited to: hypoxic-ischemic from cardiac or cerebral etiology, toxic from medication overdose, infectious from aspiration pneumonia, hepatic, uremic, or metabolic. At this time, troponin level and d-dimer are negative, and WBC, liver function tests, renal function tests, and electrolytes are within normal limits. Lactic acid elevated. Given his bradycardia, arrhythmia is likely etiology. Review of telemetry shows sinus bradycardia with an occasional PAC. - CT brain without contrast does not show an acute intracranial hemorrhage but intracranial internal carotid artery atherosclerosis was noted. Consider further workup with carotid ultrasound. - Blood and sputum cultures ordered - TSH, ESR, and CK-MB unremarkable - Vitamin B12 deficient. Further workup as an outpatient - Echocardiogram ordered - Vancomycin discontinued at MRSA negative - IV Zosyn discontinued as procalcitonin is stable and no leukocytosis - Cardiology consulted. Their time and recommendations are appreciated. Acute hypoxic respiratory failure, present on admission, active. - Found apneic at [facility] and intubated in the emergency department - Pulmonology consulted and following. Their time and recommendations are appreciated. - Palliative care consulted and following. Their time and recommendations are appreciated. - Pt passed breathing trial and is now extubated. Possible aspiration pneumonia, present on admission, active. - Streaky retrocardiac opacities on chest x-ray - IV Zosyn as above - Continue to monitor WBC and procalcitonin Lactic acidosis, acute, present on admission, resolved. - Lactic acid 2.6 on admission Hyperglycemia, acute, present on admission, resolved. - Glucose 132 on admission - Continue to monitor Alzheimer's dementia, chronic. - Hold prazosin for now - Continue to monitor Zofran as needed for nausea or vomiting. Miralax and Senna as needed for constipation. Famotidine twice per day. Pain Evaluation: Adequate Pain Control VTE Mechanical Devices: Intermittant Pneumatic CD Resuscitation Status: CPR: Attempt Resuscitation Attending Statement The patient was seen and examined together with Dr. Garcia on 10/15/2016 and I agree with the history, exam and plan as outlined in the note above. . Annette Garcia DO Oct 15, 2016 08:53 Iain Pritchett MD Oct 15, 2016 16:26
--- NOTE | 2016-10-15 14:33 | PROG NOTE ---
[address] [address] PROGRESS NOTE PATIENT: RENA MCQUEEN : 1935 MR#: [id number] ADMIT: 10/13/2016 JOB ID: [id number] DATE: 10/15/2016 PULMONARY CRITICAL CARE FOLLOW UP NOTE: PROBLEMS: 1. Loss of consciousness. 2. Intubation for ventilatory failure. SUBJECTIVE: None. OBJECTIVE: Temperature 36.8, pulse 60 though a rhythm strip shows what appears to be a sinus arrest. Pulse has been varying between the 40s and 60s. Respiratory rate mid 10s. Blood pressure 145/56, O2 sat on FiO2 of 0.25, PEEP of 5, is 97%. I and O shows 4.8 L in, 1.1 L out. General appearance: Somewhat agitated. Awake, looking around. Does not make any attempt at replies. Conjunctivae are pink. Nose and throat could not be examined. Chest: Fair breath sounds bilaterally, but the patient will not cooperate with taking deep breaths. Sounds relatively clear anterolaterally. Heart, at time my examination, regular rhythm. Abdomen soft. Nondistended. Active bowel tones. The patient has been on a pressure support trial for the past 4-5 hours. Off all sedatives. LABORATORY: Shows a white count of 8900 with 55 polymorphonuclears, 25 lymphocytes, 12 monocytes, 6 eosinophils. Hemoglobin stable at 13.3. Platelet count stable at 167,000. Sodium 141, potassium 3.6, has been repleted with potassium and currently is 4, chloride 111, CO2 is 15. BUN 9, creatinine 0.85, calcium 7.8 with albumin of 3.1. Magnesium 1.7. Total bilirubin 0.8. Transaminases are normal as is alkaline phosphatase. ASSESSMENT: Loss of consciousness. The patient rather awake at this point. Has tolerated pressure support trial. He has not had any pulmonary problems during his sojourn in the ICU. I think he can be extubated. Told there is a cuff leak, but with his return of consciousness, ventilatory status should be fine. Etiology of his loss of consciousness unclear. However, rhythm strip may give us some clues with possible cardiac arrhythmia underlying. Cardiology consult pending. PLAN: 1. Extubate. 2. Cardiology consultation regarding evaluation of his loss of consciousness. TIME SPENT: In critical care 20 minutes.
[2016-10-16] VITALS (8 sets, daily range): BP systolic 112–151; BP diastolic 48–73; PULSE 37–72; RESP 17–26; O2SAT 96–98
[2016-10-16] MEDS: Piperacillin-Tazo 3.375 Gm Inj 3.375 GM in Dextrose 5% Minibag Plus 50 ML IV SCH ×2 (00:11→08:04)
[2016-10-16] MEDS: Heparin 5,000 Unit/mL Inj SUBQ SCH ×3 (00:11→16:57)
[2016-10-16] MEDS: 0.9% Sodium Chloride 1,000 ML IV SCH ×2 (00:12→12:49)
[2016-10-16 03:30] LABS: BASOPHILS % (AUTO) 0.5 % (0-3); EOSINOPHILS % (AUTO) 3.8 % (0-5); MONOCYTES % (AUTO) 11.2 % (4-12); Mean Corpuscular Hemoglobin 32.5 pg (27.0-35.0); Mean Corpuscular Volume 91.1 fL (81-100); NEUTROPHILS % (AUTO) 58.7 % (40-74); Platelet Count 167 bil/L (150-400)
[2016-10-16 03:51] LABS: Magnesium 1.8 mg/dL (1.6-2.6)
--- NOTE | 2016-10-16 07:41 | DRSVH ---
PROCEDURE: X-RAY CHEST ONE VIEW, PORTABLE ([id number]) INDICATIONS: pneumonia TECHNIQUE: One view of the chest was acquired. COMPARISON: [facility], CR, XR CHEST 1VW (PORTABLE), 10/15/2016, 5:06. formerly [facility], CR, XR CHEST 1VW (PORTABLE), 10/14/2016, 5:17. [facility], CR, XR CHEST 1VW (SPEEDY BLE), 10/13/2016, 13:06. FINDINGS: Surgical changes and devices: None. Lungs and pleura: No pleural effusions or pneumothorax. Lungs are clear considering reduced inspira tory volume. Mediastinum: Mediastinal contours appear normal. Heart size is normal. Bones and chest wall: No suspicious bony lesions. Overlying soft tissues appear unremarkable. IMPRESSION: Reduced inspiratory volume, no acute disease. Dictated by: Jose Reyes M.D. on 10/16/2016 at 7:39 Approved by: Jose Reyes M.D. on 10/16/2016 at 7:39
--- NOTE | 2016-10-16 09:19 | PROG NOTE ---
[address] [address] PROGRESS NOTE PATIENT: RENA MCQUEEN : 1935 MR#: [id number] ADMIT: 10/13/2016 JOB ID: [id number] DATE: 10/16/2016 REASON FOR FOLLOWUP: Pulmonary infiltrate with possible pneumonia. INTERVAL HISTORY: The patient has been extubated over the past 48 hours since I last saw him, and he is now awake and able to answer some questions. He states at this point. He has no fevers, no chills, no significant cough or shortness of breath. He denies chest pain, nausea, vomiting, or diarrhea. He states he is steadily improving. PHYSICAL EXAMINATION: Reveals a comfortable gentleman lying supine in his ICU bed. He is extubated and breathing room air. Temperature 36.6, pulse 37, respiratory rate 26, blood pressure 112/48, saturating 98% on room air. He is awake and in no distress whatsoever. Oral cavity negative. Lungs fairly clear bilaterally. Cardiac tones very bradycardic, but without murmur. Regular rate and rhythm is noted. Abdomen soft and nontender. No skin rash. LABORATORIES: Include white count 9800, completely normal diff. Creatinine 0.72. Liver function tests normal except for albumin 1.4. We now have 3 procalcitonin all less than 0.1 which almost excludes bacterial pneumonia or sepsis. Urinalysis was negative. Micro studies include 2 negative blood cultures, negative sputum, and a negative MRSA screen. Our last chest x-ray was done just this morning shows no infiltrate. IMPRESSION: There is no evidence that this patient is currently infected or that infection contributed to his dramatic presentation on October 13 when he was found unresponsive, though it is conceivable the patient may have aspirated during the exciting events of October 13. There is certainly no evidence that he has developed an aspiration pneumonia or has any significant respiratory compromise at this point. RECOMMENDATIONS: 1. Will discontinue Zosyn. 2. No additional antibiotics or infectious disease diagnostic studies are indicated at this time. 3. ID will go ahead and sign off.
--- NOTE | 2016-10-16 13:17 | PCM.PNMED ---
Subjective Date of Service Oct 16, 2016 Subjective 80-year-old male was observed to lose consciousness and respiratory arrest with a pulse at his assisted living center. He was intubated in the emergency department but was extubated yesterday, making it 2-3 days on the vent. Overnight patient had continuing episodes of bradycardia, reaching as low as the high 20s. Atropine was ordered but never given as patient has been more or less asymptomatic. Discussed with Dr. Horton this morning who will see the patient and make recommendations for intervention with pacer. Patient is demented and converses well but unable to answer many questions. Infectious diseases also seen the patient then noticed in the chart; they will stop antibiotics and sign off. Exam Vital Signs Vital Sign - Last Date Time Temp Pulse Resp B/P Pulse Ox O2 Delivery O2 Flow Rate FiO2 10/16/16 08:20 37 10/16/16 07:36 36.6 26 112/48 98 Room Air 10/15/16 12:00 25 Intake and Output 10/15/16 10/15/16 10/16/16 Cumulative From/Thru 15:00 23:00 07:00 10/13/16 11:42 - 10/16/16 06:10 Intake Total 1196 ml 994 ml 72125 ml Output Total 4200 ml 1850 ml 8475 ml Balance -3004 ml -856 ml 1904 ml Intake IV Total 1196 ml 994 ml 26081 ml Tube Irrigant 150 ml Output Urine Total 4150 ml 1850 ml 8325 ml Gastric Drainage Total 50 ml 150 ml # Bowel Movements 0 0 0 Exam General: Patient awake and conversing but confused Cardio: Regular rhythm but bradycardic in the 40s to 50s Respiratory: CTA bilaterally Abdomen: Benign, nontender, positive bowel sounds Extremities: No edema Psych: Demented Neuro: Unable to cooperate IVs and Medications Medications Reviewed: Medications were reviewed in detail Lab and Diagnostics Result Diagram: 10/16/16 0308 10/16/16 0308 X-Rays, CTs and MRIs PROCEDURE: CT BRAIN WITHOUT CONTRAST IMPRESSION: 1. No acute process. 2. Sinus disease. Approved by: Lucas Ruiz M.D. on 10/13/2016 at 10:57 PROCEDURE: X-RAY CHEST ONE VIEW, PORTABLE IMPRESSION: Stable examination compared to 10/14/16. Left basilar opacity is unchanged. ET tube remains approximately 2.6 cm superior to the natasha. Approved by: Anitha Goff MD, PhD on 10/15/2016 at 8:31 PROCEDURE: US VENOUS LEG DUPLEX BILATERAL IMPRESSION: No deep venous thrombosis identified within either the left or right lower extremities. Approved by: Anitha Goff MD, PhD on 10/14/2016 at 17:09 12-lead ECG Sinus rhythm with no significant ST segment changes Assessment & Plan Mr. Song Nunez is a 80 year old man with history of Alzheimer's disease who presented to the emergency department via emergency medical services (EMS) due to being found unresponsive and not breathing at his [facility]. Acute encephalopathy, present on admission, improving. - Still unknown why this patient stopped breathing; possibly could be due to bradycardia but what this would cause pulsatile pulmonary arrest is unknown and unlikely - CT brain was negative; Blood and sputum cultures negative so far - Vitamin B12 deficient. Further workup as an outpatient - Echocardiogram 60-65% with normal ventricular function - IV Zosyn discontinued as procalcitonin is stable and no leukocytosis - Cardiology consulted and we appreciate taken the time she was patient; await the recommendations on pacemaker Acute hypoxic respiratory failure, present on admission, active. - Found apneic at half-way and intubated in the emergency department; was intubated for 3 days and extubated successfully - We will follow with Palliative care for continued care planning Possible aspiration pneumonia, present on admission, resolved - Streaky retrocardiac opacities on chest x-ray; CXR clear today - Stop IV Zosyn per ID; patient was covered for approximately 3 days - Continue to monitor WBC and procalcitonin intermittently Lactic acidosis, acute, present on admission, resolved. - Lactic acid 2.6 on admission Hyperglycemia, acute, present on admission, resolved. - Glucose 132 on admission - Continue to monitor Alzheimer's dementia, chronic. - Hold prazosin for now - Continue to monitor Zofran as needed for nausea or vomiting. Miralax and Senna as needed for constipation. Famotidine twice per day. Disposition: Anticipated that the patient be discharged tomorrow to [place], after cardiology has seen and examined the patient. Patient does not appear to be a good candidate for pacemaker. Pain Evaluation: Adequate Pain Control VTE Mechanical Devices: Intermittant Pneumatic CD Resuscitation Status: CPR: Attempt Resuscitation Attending Statement The patient was seen and examined together with Dr. Pagan on 10/16/2016 and I agree with the history, exam and plan as outlined in the note above. . David Pagan DO Oct 16, 2016 13:17 Iain Pritchett MD Oct 17, 2016 09:11
--- NOTE | 2016-10-16 13:55 | CONS ---
[address] [address] CONSULTATION REPORT PATIENT: RENA MCQUEEN : 1935 MR#: [id number] ADMIT: 10/13/2016 JOB ID: [id number] DATE OF SERVICE: 10/16/2016 CHIEF COMPLAINT: I was asked by the hospital team to consult on this patient given bradycardia. HISTORY OF PRESENT ILLNESS: The patient is a 80-year-old man with history of Alzheimer disease. He is currently residing in a longterm. He was brought in because he was observed to have an apneic period for about 30 seconds where he just slumped over. He did have a pulse. EMS was called, and he was ultimately intubated here in the ER. He has now been extubated and appears to be doing quite well. What has been observed is that he tends to have fairly low sinus rates when he is resting. It does appear though when he is more interactive or doing things that his heart rates do go up. He does not have any significant pauses, and this morning he had three beats of what appears to be aberrantly conducted sinus rhythm. The important fact is that despite this bradycardia, he has not had any recurrent apneic events. The patient was extubated without problems. Currently, when he is at rest, his heart rates are in the 40s. But again, if he becomes interactive or gets moved, heart rates rapidly increased appropriately. PAST MEDICAL HISTORY/PROBLEM LIST: 1. History of Alzheimer's. 2. History of hypertension for which he is prescribed prazocin. CURRENT MEDICATIONS: From home included: 1. Loperamide. 2. Zofran. 3. Prazocin 1 mg q.h.s. All other medications are p.r.n. medications. ALLERGIES: No known drug allergies. SOCIAL HISTORY: No tobacco. A former smoker. No alcohol use. FAMILY HISTORY: No early coronary disease. REVIEW OF SYSTEMS: Somewhat difficult to obtain with the patient. However, he nods his head and comments if there are any problems. He denies abdominal pain. He denies fevers. Endocrine: He denies increased warmth or discomfort. Neuro: Patient is interactive but has some memory issues. GI: No acute issues at this time. : No acute issues. Derm: No new rashes. Ophtho: No acute vision changes. ENT: Just had a swallowing exam. All other review of systems as is able to be obtained are negative. PHYSICAL EXAMINATION: Blood pressure is 112/48, heart rate 46, afebrile. Sats are 98% on room air. General: In no acute distress. Interactive, alert. Head and neck exam: Normocephalic, atraumatic. Neck: I do not appreciate obvious JV distention. Heart exam: Bradycardic but regular without murmurs, gallops, rubs appreciated. Lungs clear to auscultation anteriorly. Abdomen is soft, nondistended. Back: No CVA tenderness to palpation. Extremities warm. No appreciable edema. 1+ distal pulses. Skin without obvious breakdown appreciated. Neuro: Alert, interactive. Does speak when spoken to. Gait not tested. Psych: Appropriate mood and affect. Ophtho: Vision grossly intact. ENT: Mucous membranes are moist. CURRENT MEDICATIONS: Include: 1. Subcu heparin. 2. Famotidine. 3. Quetiapine. LABORATORIES: Show white count 9.8, H and H 12.4 and 34.7, platelets of 167,000. Chemistry shows sodium 139, potassium 3.8. Chloride and bicarb shows 104 and 14 (low). Creatinine 0.72. Total bilirubin 1.4. It was 0.8. Procalcitonin at 0.09. Imaging shows a visual chest x-ray that showed endotracheal tube, patchy left bibasilar opacities nonspecific, might reflect aspiration. Brain CT: No acute process. Evidence for sinus disease. Followup chest x-ray: Streaky opacities, probably atelectasis versus aspiration. Venous duplex: No new DVTs identify. Current chest x-ray shows reduced inspiratory volume but no acute disease. An echocardiogram is read as showing normal left ventricular size and systolic function, lower limits of normal right ventricular systolic function, mild to moderate mitral regurgitation. Estimated right ventricular systolic pressure is 20+ CVP. Telemetry shows sinus britni but also with increases of heart rate which are apparently occurring when people are waking the patient up or interacting with him. His basal heart rates appear to be in the 40s to 50s, but I see heart rates in the 70s and some higher. IMPRESSION: The patient came in with what appears to be apnea respiratory arrest. He was intubated but rapidly extubated because there is no clear cause as to why this occurred. He apparently was not pulseless. I do not have an EKG or rhythm strip to document what his heart rate was at that time. He does tend to run low heart rates when at rest, and he has not had any recurrent episodes despite these low heart rates. I should note that heart rates do tend to increase when he is more interactive or being moved. PLANS AND RECOMMENDATION: 1. I am not certain what level of activity this gentleman is at when he is residing in his home facility. However, if he is having problems with lightheadedness, dizziness, increased shortness of breath, he would be a potential candidate for pacemaker. However, I cannot identify that bradycardia was the cause of his current issue. Therefore, we cannot say that a pacer would prevent further events at this juncture. 2. I will try to speak with his family members to see what their feelings are about this. I spent 40 minutes reviewing the patient's notes, imaging, telemetry, EKGs, and I spoke with the patient, his nurse, and examined him. MOR
[2016-10-17] VITALS (8 sets, daily range): BP systolic 132–182; BP diastolic 65–74; PULSE 48–85; RESP 18–20; O2SAT 95–97
[2016-10-17] MEDS: Heparin 5,000 Unit/mL Inj SUBQ SCH ×3 (00:47→15:56)
[2016-10-17] MEDS: Sodium Chloride LOK Flush 10 mL Syringe IVFLUSH SCH ×3 (00:47→15:56)
[2016-10-17 04:46] LABS: BASOPHILS % (AUTO) 0.6 % (0-3); EOSINOPHILS % (AUTO) 5.6 % (0-5); MONOCYTES % (AUTO) 12.2 % (4-12); Mean Corpuscular Hemoglobin 32.4 pg (27.0-35.0); NEUTROPHILS % (AUTO) 56.3 % (40-74); Platelet Count 176 bil/L (150-400)
--- NOTE | 2016-10-17 13:45 | PCM.PALLBR ---
Palliative Care Recommendation Summary of palliative recommendations: 10/17/16-Patient seen and reviewed with Dr. Velez. Moderately demented with viz hallucinations This AM and more so this afternoon he is actively hallucinating visually- staring off and reaching for objects in air etc. This AM he did same but could be directed into conversation. he has had quetiapine 25 mg without much effect-- nsg now giving addnal 25 mg and haloperidol is ordered PRN if necessary. Patient is a 80-year-old male with significant past medical history of Alzheimer 's disease presented via EMS for unresponsiveness and apnea. Paramedics reported the patient was apneic for approximately 30 seconds but had a pulse. Paramedics attempted to intubate the patient en route but was unsuccessful. A Jn tube was placed by the paramedics and the patient was subsequently intubated in the Emergency Department. Chest x-ray on admit shows patchy peripheral left basilar opacities. CT brain shows sinus disease but no acute process. Palliative medicine consult to assist in determination of goals of care. -Symptom management (Pain/other): Patient is sedated and on mechanical ventilator. Patient appear comfortable at this time. Continue management per medical and critical care teams. -DPOA/Advanced Directives/POLST: No prior POLST. Patient's nephew, Jj, is the patient's guardian. The patient's wishes were discussed with Jj and he wishes to continue aggressive care, though he states that the patient would not want to be maintained long-term on machines if there is no meaningful hope of survival. Palliative medicine will continue to follow. Will plan on helping patient and his family generate a POLST with their wishes at time of discharge. -Family/emotional support: Patient seems to have good support from his nephew. Patient Goals: 1. Patient's family wants to be told the truth about his illness, even if it is unpleasant. 2. Patient's family would like to be told prognosis when it can be predicted, to better guide treatment decisions. 3. Patient's family would choose quality of life over quantity of life, and defines quality as maintaining the patient's functionality and not being supported by machines or being bedbound. Additional Medical Diagnoses with primary management by Hospitalist team include : Acute encephalopathy, present on admission, active. Acute hypoxic respiratory failure, present on admission, active. Possible aspiration pneumonia, present on admission, active. Lactic acidosis, acute, present on admission, resolved. Hyperglycemia, acute, present on admission, resolved. Alzheimer's dementia, chronic. . Problems: End of Life Preferences Full code at this time Disposition To be determined pending hospital course Resuscitation Status Resuscitation Status: CPR: Attempt Resuscitation POLST Updates/Changes Previous POLST?: No POLST Discussed with: Health Care Agent ([facility]) (nephew) . Symptom management: Agitation, Delirium Total time 15 minutes; >50% face to face with patient and/or family, providing counselling regarding plans and recommendations, and in care coordination with his medical teams. Attending Statement See above- pt seen and reviewed with Dr. Velez Plan of care reviewed including changing of status this afternoon with increasing hallucinations and mild agitation. I agree with documentation and added pertinent changes. Palliative Brief Note Date of Service Oct 17, 2016 . Rounded on patient today. Discussed case with primary care team and reviewed the updated records in the EMR prior to visiting. Patient was extubated on 2016 and has been doing well since that time. Patient has dementia but is able to carry some conversation. He currently has a sitter at bedside in the room for impulsiveness. Etiology of the patient's loss of consciousness remains unclear but the patient has consistently been bradycardic with heart rates as low as into the 20s during this hospitalization. With activity, however, the patient's heart rate does increase appropriately. Dr. Horton of cardiology has seen the patient. It was determined that a pacer is not indicated at this point as there is no conclusive evidence that the bradycardia was the cause of the patient's loss of consciousness. Patient is anticipated to discharge back to [facility] pending their assessment. Patient remains FULL CODE per patient's nephew and Ty LENNON. Exam: General: Patient is lying in bed, No acute distress HEENT: EOMI, No scleral icterus Cardiac: Regular, bradycardic with heart rates in the 50s, Soft systolic murmur at base Lungs: Clear bilaterally Abdomen: Bowel tones present, Soft, Nontender Extremities: No peripheral edema Neuro: Grossly neurologically intact Labs and imaging studies reviewed in detail Bebo Velez DO Oct 17, 2016 11:56 Mable Wright MD Oct 17, 2016 16:47
--- NOTE | 2016-10-17 17:46 | PCM.PNMED ---
Subjective Date of Service Oct 17, 2016 Subjective 80-year-old male was observed to lose consciousness and respiratory arrest with a pulse at his assisted living center. Overnight, he was agitated, impulsive, and was pulling at his IV and catheter. His heart rate went as low at upper 40s. Today, he reports that he does not have any chest pain or abdominal pain. He feels different from normal but was not able to explain in what way he felt different. Exam Vital Signs Vital Sign - Last Date Time Temp Pulse Resp B/P Pulse Ox O2 Delivery O2 Flow Rate FiO2 10/17/16 16:06 36.4 54 20 170/74 97 Room Air 10/15/16 12:00 25 Intake and Output 10/16/16 10/16/16 10/17/16 Cumulative From/Thru 15:00 23:00 07:00 10/13/16 11:42 - 10/17/16 05:35 Intake Total 1422 ml 50 ml 20140 ml Output Total 1750 ml 1350 ml 44916 ml Balance -328 ml -1300 ml 276 ml Intake Oral 466 ml 50 ml 516 ml IV Total 956 ml 49154 ml Tube Irrigant 150 ml Output Urine Total 1750 ml 1350 ml 27959 ml Gastric Drainage Total 150 ml # Bowel Movements 1 1 Exam General: Elderly gentleman lying in bed in no acute distress, well-developed, well-nourished HEENT: Normocephalic, atraumatic. . Neck: Supple. Cardiovascular: Bradycardic with a regular rhythm with no murmurs, rubs, or gallops appreciated Pulmonary: Breath sounds equal bilaterally and clear to auscultation with no wheezes or rhonchi. Abdomen: Bowel tones present. Soft, nondistended. Extremities: No clubbing, cyanosis, or edema appreciated. Skin: Normal temperature and turgor. No rashes appreciated. Neurological and psychiatric: He is awake and alert. Oriented to person. He follows commands and moves all four extremities. IVs and Medications Medications Reviewed: Medications were reviewed in detail Lab and Diagnostics Result Diagram: 10/17/16 0436 10/17/16 0540 X-Rays, CTs and MRIs PROCEDURE: CT BRAIN WITHOUT CONTRAST IMPRESSION: 1. No acute process. 2. Sinus disease. Approved by: Lucas Ruiz M.D. on 10/13/2016 at 10:57 PROCEDURE: X-RAY CHEST ONE VIEW, PORTABLE IMPRESSION: Stable examination compared to 10/14/16. Left basilar opacity is unchanged. ET tube remains approximately 2.6 cm superior to the natasha. Approved by: Anitha Goff MD, PhD on 10/15/2016 at 8:31 PROCEDURE: US VENOUS LEG DUPLEX BILATERAL IMPRESSION: No deep venous thrombosis identified within either the left or right lower extremities. Approved by: Anitha Goff MD, PhD on 10/14/2016 at 17:09 12-lead ECG Sinus rhythm with no significant ST segment changes Assessment & Plan Mr. Song Nunez is a 80 year old man with history of Alzheimer's disease who presented to the emergency department via emergency medical services (EMS) due to being found unresponsive and not breathing at his custodial. Acute encephalopathy, present on admission, improved. - Still unknown why this patient stopped breathing; possibly could be due to bradycardia but what this would cause pulsatile pulmonary arrest is unknown and unlikely - CT brain was negative; Blood and sputum cultures negative so far - Vitamin B12 deficient. Further workup as an outpatient - Echocardiogram 60-65% with normal ventricular function - IV Zosyn discontinued as procalcitonin is stable and no leukocytosis - Cardiology consulted . Discussed with Dr. Apple today who recommended readdressing if the patient is a candidate for a pacemaker if the patient experiences symptomatic bradycardia. Essential hypertension, unknown chronicity. No known previous diagnosis of hypertension but blood pressure hypertensive intermittently during hospitalization - Start lisinopril 10 mg and monitor response Alzheimer's dementia, chronic. - Seroquel 25 mg as needed - Resume prazosin - Continue to monitor Acute hypoxic respiratory failure, present on admission, active. - Found apneic at custodial and intubated in the emergency department; was intubated for 3 days and extubated successfully - We will follow with Palliative care for continued care planning Possible aspiration pneumonia, present on admission, resolved - Streaky retrocardiac opacities on chest x-ray; CXR clear today - Stop IV Zosyn per ID; patient was covered for approximately 3 days - Continue to monitor WBC and procalcitonin intermittently Lactic acidosis, acute, present on admission, resolved. - Lactic acid 2.6 on admission Hyperglycemia, acute, present on admission, resolved. - Glucose 132 on admission - Continue to monitor Zofran as needed for nausea or vomiting. Miralax and Senna as needed for constipation. Famotidine twice per day. Disposition: Likely [facility] VTE Mechanical Devices: Intermittant Pneumatic CD Resuscitation Status: CPR: Attempt Resuscitation Attending Statement The patient was seen and examined together with Dr. Garcia on 10/17/16 and I agree with the history, exam and plan as outlined in the note above. Annette Garcia DO Oct 17, 2016 17:45 Madeleine Howe DO Oct 18, 2016 18:46
[2016-10-18 00:16] VITALS: PULSE 52
[2016-10-18] MEDS: Sodium Chloride LOK Flush 10 mL Syringe IVFLUSH SCH ×2 (00:56→08:09)
[2016-10-18] MEDS: Heparin 5,000 Unit/mL Inj SUBQ SCH ×2 (00:56→08:09)
[2016-10-18 04:35] VITALS: BP 132/83; PULSE 56; RESP 18; O2SAT 94
[2016-10-18 04:53] LABS: BASOPHILS % (AUTO) 0.5 % (0-3); EOSINOPHILS % (AUTO) 7.3 % (0-5); MONOCYTES % (AUTO) 9.8 % (4-12); Mean Corpuscular Hemoglobin 32.6 pg (27.0-35.0); Mean Corpuscular Volume 91.8 fL (81-100); NEUTROPHILS % (AUTO) 53.4 % (40-74); Platelet Count 198 bil/L (150-400)
[2016-10-18 08:10] LABS: Alprazolam Negative (.)
[2016-10-18 08:40] VITALS: PULSE 56
[2016-10-18 08:58] VITALS: BP 134/58; PULSE 54; RESP 20; O2SAT 96
[2016-10-18 09:27] VITALS: PULSE 51
--- NOTE | 2016-10-18 09:54 | PCM.PALLBR ---
Palliative Care Recommendation Summary of palliative recommendations: 10/17/16-Patient seen and reviewed with Dr. Velez. Moderately demented with viz hallucinations This AM and more so this afternoon he is actively hallucinating visually- staring off and reaching for objects in air etc. This AM he did same but could be directed into conversation. he has had quetiapine 25 mg without much effect-- nsg now giving addnal 25 mg and haloperidol is ordered PRN if necessary. Patient is a 80-year-old male with significant past medical history of Alzheimer 's disease presented via EMS for unresponsiveness and apnea. Paramedics reported the patient was apneic for approximately 30 seconds but had a pulse. Paramedics attempted to intubate the patient en route but was unsuccessful. A Jn tube was placed by the paramedics and the patient was subsequently intubated in the Emergency Department. Chest x-ray on admit shows patchy peripheral left basilar opacities. CT brain shows sinus disease but no acute process. Palliative medicine consult to assist in determination of goals of care. -Symptom management (Pain/other): Patient appear comfortable at this time. Continue management per medical and critical care teams. -DPOA/Advanced Directives/POLST: No prior POLST. Patient's nephew, Ty, is the patient's guardian. The patient's wishes were discussed with Ty and he wishes to continue aggressive care, though he states that the patient would not want to be maintained long-term on machines if there is no meaningful hope of survival. Palliative medicine will continue to follow. Will plan on helping patient and his family generate a POLST with their wishes at time of discharge. -Family/emotional support: Patient seems to have good support from his nephew. Patient Goals: 1. Patient's family wants to be told the truth about his illness, even if it is unpleasant. 2. Patient's family would like to be told prognosis when it can be predicted, to better guide treatment decisions. 3. Patient's family would choose quality of life over quantity of life, and defines quality as maintaining the patient's functionality and not being supported by machines or being bedbound. Additional Medical Diagnoses with primary management by Hospitalist team include : Acute encephalopathy, present on admission, active. Acute hypoxic respiratory failure, present on admission, active. Possible aspiration pneumonia, present on admission, active. Lactic acidosis, acute, present on admission, resolved. Hyperglycemia, acute, present on admission, resolved. Alzheimer's dementia, chronic. . Problems: End of Life Preferences Full code at this time Disposition Return to [facility] Resuscitation Status Resuscitation Status: CPR: Attempt Resuscitation POLST Updates/Changes Previous POLST?: No POLST Discussed with: Health Care Agent ([facility]PO[facility]) (nephew) Total time 30 minutes; >50% face to face with patient and/or family, providing counselling regarding plans and recommendations, and in care coordination with his/her medical teams. Attending Statement Patient seen and chart reviewed with Dr. Velez. Pt fairly sedated this AM and without evidence of active hallucinations. Agree with assessment and plan. Code status established based on discussion between Dr. Alvarez and pt's nephew. POLST not complete due to FULL CODE status. Palliative Brief Note Date of Service Oct 18, 2016 . Rounded on patient today. Discussed case with nurse, primary care team and reviewed the updated records in the EMR prior to visiting. Patient continues to do fairly well since his extubation on 10/16/2016. He continues to have a sitter at bedside due to his impulsiveness. [place] online [employer] director evaluated the patient yesterday and he is approved to return to the facility when medically ready. Patient anticipated to return to [facility] today. Patient reports feeling tired this morning but denies any pain. Patient remains FULL CODE per patient's nephew and Ty LENNON. Palliative care will sign off but please do not hesitate to contact us with questions or concerns. Physical exam declined by the patient but he appears comfortable in bed and in no acute distress. Labs and imaging studies reviewed in detail. Bebo Velez DO Oct 18, 2016 09:54 Mable Wright MD Oct 18, 2016 16:29
--- NOTE | 2016-10-18 13:11 | PCM.DIMED ---
Annette Garcia DO 10/18/16 0756: Discharge Instructions Date of Service Oct 18, 2016 Dates of Hospitalization Oct 13, 2016 at 12:38 Discharge Diagnosis Discharge Diagnosis You have a low heart rate and high blood pressure. Diet Discharge Diet: Heart Healthy Activity Discharge Activity: Home Health Phyical Therapy Call your provider Call your provider for: Fever or Chills, Shortness of breath, Bleeding, Chest pain, Vomitting, Excessive diarrhea, Weakness (unilateral) Patient Instructions Patient Instructions You are going back to [facility] with [facility], physical therapy, and occupational therapy to follow. Start home health nursing once per week for 4 weeks because you are being discharged with a new blood pressure medication and for cardiac assessment and teaching. Start home health physical therapy twice per week for 4 weeks for assessment and teaching of safe ambulation with a new walker, to assess and teach fall risk and fall recovery, and to teach home exercise programs for safe ambulation and increased endurance. Start home health occupation therapy twice per week for 4 weeks to teach safe transfers, home exercise programs, and energy conservation methods. If you develop lightheadedness, dizziness, or feel like you are going to faint, please seek medical attention. Start taking lisinopril 10 mg once daily for high blood pressure. Follow up with your primary care provider, Dr. Cosme, in 7-10 days to review your hospital stay including following up on your blood pressure, heart rate, and discuss possibly starting vitamin supplements. Follow-up Provider: Trey Cosme DO Follow-up with PCP in: 1 week Madeleine Howe DO 10/18/16 1844: Discharge Instructions Attending's Statement The patient was seen and examined together with Dr. Garcia on 10/18/16 and I agree with the history, exam and plan as outlined in the note above. Annette Garcia DO Oct 18, 2016 07:56 Madeleine Howe DO Oct 18, 2016 18:44
[2016-10-18] MEDS ORDERED: LISI10TA PO (13:12)
--- NOTE | 2016-10-18 16:33 | PCM.DC.MED ---
Discharge Summary Date of Service Oct 18, 2016 Dates of Hospitalization Date of Hospital Admission Oct 13, 2016 at 12:38 Date of Discharge: Oct 18, 2016 Providers: Admitting Physician: Iain Pritchett MD Primary Care Physician: Nopcp Attending Physician: Iain Pritchett MD Diagnosis at Time of Discharge Diagnosis at Time of Discharge Acute hypoxic encephalopathy Sinus bradycardia Essential hypertension Alzheimer's dementia Acute hypoxic respiratory failure Rule out aspiration pneumonia Vitamin B12 deficiency Lactic acidosis Hyperglycemia, Procedures XRay, CTs & MRIs PROCEDURE: CT BRAIN WITHOUT CONTRAST IMPRESSION: 1. No acute process. 2. Sinus disease. Approved by: Lucas Ruiz M.D. on 10/13/2016 at 10:57 PROCEDURE: X-RAY CHEST ONE VIEW, PORTABLE IMPRESSION: Stable examination compared to 10/14/16. Left basilar opacity is unchanged. ET tube remains approximately 2.6 cm superior to the natasha. Approved by: Anitha Goff MD, PhD on 10/15/2016 at 8:31 PROCEDURE: US VENOUS LEG DUPLEX BILATERAL IMPRESSION: No deep venous thrombosis identified within either the left or right lower extremities. Approved by: Anitha Goff MD, PhD on 10/14/2016 at 17:09 ECG 12 Lead Sinus bradycardia with no significant ST segment changes Cardiac Echo Impression Echocardiogram Report Interpretation Summary The patient was in sinus bradycardia with heart rates between 48-50 bpm during the exam. The left ventricle is normal in size. The ejection fraction is estimated to be 60-65%. The right ventricle is grossly normal size. Right ventricular systolic function is at the lower limits of normal. There is mild to moderate mitral regurgitation. The aortic valve is mildly calcified. Leaflet mobility is mildly reduced. There is mild aortic regurgitation. There is mild tricuspid regurgitation. Right ventricular systolic pressure is estimated to be 28 mmHg plus the clinically estimated CVP which cannot be estimated on this exam. The IVC has a measurement of 25 mm. Inspiratory collapse cannot be assessed because of mechanical ventilation, thus CVP cannot be estimated.. Reading Physician:PM Brief History From the history and physical performed by Dr. Annette Garcia on 10/13/2016: Mr. Song Nunez is a 80 year old man with history of Alzheimer's disease who presented to the emergency department via emergency medical services (EMS) due to being found unresponsive and not breathing. It was reported that he was apneic for 30 seconds at a time with a pulse. He did not have pinpoint pupils before EMS arrived. The prison, [facility], reported that the patient was not recently sick and had not recently fallen. EMS tried to intubate he patient twice but were unsuccessful so a Jn tube was placed. In the emergency department, his Glascow score was 7, and he had an endotracheal tube placed via glide scope. He had a positive guaiac stool, and there was a scant amount of blood in the nasogastric tube. History obtained from medical records because patient is intubated and sedated at time of interview Hospital Course Mr. Song Nunez is a 80 year old man with history of Alzheimer's disease who presented to the emergency department via emergency medical services (EMS) due to being found unresponsive and not breathing at his prison. He was intubated in the ED and then extubated 10/15/16. During hospitalization, patient had sinus bradycardia, but patient was asymptomatic. He was discharged to the [facility] where he previously resided. Hospital course see below: Acute hypoxic encephalopathy, present on admission, resolved. - Still unknown why this patient stopped breathing and was unresponsive; possibly could be due to bradycardia but what this would cause pulsatile pulmonary arrest is unknown and unlikely - CT brain was negative; Blood and sputum cultures negative. TSH within normal limits. - Vitamin B12 deficient. Further workup as an outpatient - Echocardiogram 60-65% with normal ventricular function - IV Zosyn discontinued as procalcitonin was stable and no leukocytosis - Cardiology consulted. Discussed with Dr. Apple on 10/17/16 who recommended readdressing if the patient is a candidate for a pacemaker if the patient experiences symptomatic bradycardia. Sinus bradycardia, present on admission, active. - Heart rate as low as high 20s but baseline is 40-50s. It increased to 60-70s with activity. - Asymptomatic during hospitalization - Pacemaker discussed with cardiology as above Essential hypertension, unknown chronicity. No known previous diagnosis of hypertension but blood pressure hypertensive intermittently during hospitalization - Started lisinopril 10 mg Alzheimer's dementia, chronic. - Seroquel 25 mg was given as needed and haloperidol 0.5 mg was given if Seroquel did not help with agitation during hospital stay - Resumed home prazosin Acute hypoxic respiratory failure, present on admission, resolved. - Found apneic at prison and intubated in the emergency department; was intubated for 3 days and extubated successfully - Palliative care consulted for continued care planning. They discussed with patient's nephew, Ty, and patient remains FULL CODE per patient's nephew and Ty LENNON. Ruled out aspiration pneumonia, present on admission, resolved - Streaky retrocardiac opacities on chest x-ray; repeat CXR clear and procalcitonin was stable and patient was afebrile and did not have leukocytosis . - Stopped IV Zosyn per ID; patient was covered for approximately 3 days Vitamin B12 deficiency, present on admission. - Vitamin B12 level 149 - Consider further work up as outpatient Lactic acidosis, acute, present on admission, resolved. - Lactic acid 2.6 on admission Hyperglycemia, acute, present on admission, resolved. - Glucose 132 on admission Exam Vital Signs (Last) Date Time Temp Pulse Resp B/P Pulse Ox O2 Delivery O2 Flow Rate FiO2 10/18/16 09:27 51 10/18/16 08:58 36.5 20 134/58 96 Room Air 10/15/16 12:00 25 Exam General: Elderly gentleman lying in bed in no acute distress, well-developed, well-nourished HEENT: Normocephalic, atraumatic. Neck: Supple. Cardiovascular: Bradycardic with a regular rhythm with sharp S2 and grade II/ systolic murmur and no rubs or gallops appreciated Pulmonary: Breath sounds equal bilaterally and clear to auscultation with no wheezes or rhonchi. Abdomen: Bowel tones present. Soft, nondistended. Extremities: No clubbing, cyanosis, or edema appreciated. Skin: Normal temperature and turgor. No rashes appreciated. Neurological and psychiatric: He is awake and alert. Oriented to person. He follows commands and moves all four extremities. Test 10/13/16 10:30 10/13/16 11:45 10/13/16 16:44 10/13/16 20:14 Erythrocyte Sedimentation Rate 3mm/hr (0-30) Prothrombin Time 10.6sec (8.1-12.5) Prothromb Time International Ratio 0.99ratio D-Dimer < 0.50mg/L FEU (<0.50) Urine Color Yellow (YELLOW) Urine Appearance Clear (CLEAR,HAZY) Urine pH 6.5 (5.0-8.0) Urine Specific [place] 1.010 (1.003-1.035) Urine Protein Negativemg/dL (NEG,TRACE) Urine Glucose (UA) Negativemg/dL (NEGATIVE) Urine Ketones Negativemg/dL (NEGATIVE) Urine Occult Blood Small (NEGATIVE) Urine Nitrite Negative (NEGATIVE) Urine Bilirubin Negative (NEGATIVE) Urine Urobilinogen Normalmg/dL (NORMAL) Urine Leukocyte Esterase Negative (NEGATIVE) Urine RBC 3-10/hpf (0-2) Urine WBC 0-5/hpf (0-5) Urine Epithelial Cells Occasional/hpf (NONE-MOD) Urine Crystals None seen (NONE SEEN) Urine Bacteria None/hpf (NONE-FEW) Urine Hyaline Casts Occasional/lpf (NONE) Urine Granular Casts None seen (NONE SEEN) Urine Waxy Casts None seen (NONE SEEN) Urine Red Blood Cell Casts None seen (NONE SEEN) Urine White Blood Cell Casts None seen (NONE SEEN) Urine Mucus Present (None Seen) Urine Trichomonas None seen (NONE SEEN) Urine Yeast None (NONE SEEN) Urinalysis Comment None Urine Culture Reflexed Not indicated Total Creatine Kinase 103U/L (21-232) Creatine Kinase MB 2.4ng/mL (0.0-10.4) Creatine Kinase MB % % (0.0-5.0) Vitamin B12 Level 149pg/mL (211-946) Thyroid Stimulating Hormone (TSH) 2.630uIU/mL (0.450-4.500) Alprazolam (Xanax) Level Negativeng/mL (.) Chlordiazepoxide (Librium) Level Negativeng/mL (.) Desmethylchlordiazepoxide Level Negativeng/mL (.) Benzodiazepine Confirmation Positive (.) Clonazepam (Klonopin;Rivatril) Levl Negativeng/mL (.) 7-Amino Clonazepam Level Negativeng/mL (.) Diazepam (Valium) Level Negativeng/mL (.) Desmethyldiazepam Level Negativeng/mL (.) Flurazepam Level Negativeng/mL (.) Desalkylflurazepam Level Negativeng/mL (.) Lorazepam (Ativan) Level Negativeng/mL (.) Oxazepam (Serax) Level Negativeng/mL (.) Temazepam (Restoril) Level Negativeng/mL (.) Triazolam (Halcion) Level Negativeng/mL (.) Midazolam (Versed) Level 12ng/mL (.) Test 10/13/16 21:50 10/14/16 02:41 10/14/16 14:00 10/16/16 03:08 Lactic Acid Level 1.9mmol/L (0.4-2.0) Troponin T 0.010ug/L (0.0-0.011) Phosphorus Level 4.0mg/dL (2.5-4.9) Magnesium Level 1.8mg/dL (1.6-2.6) Test 10/16/16 04:00 10/18/16 04:32 Procalcitonin 0.09ng/mL (0.00-0.08) White Blood Count 8.0th/mm3 (3.8-10.1) Red Blood Count 4.14mil/mm3 (4.40-5.80) Hemoglobin 13.5g/dL (13.8-17.2) Hematocrit 38.0% (41.0-50.0) Mean Corpuscular Volume 91.8fL (81-100) Mean Corpuscular Hemoglobin 32.6pg (27.0-35.0) Mean Corpuscular Hemoglobin Concent 35.5% (32.0-37.0) Red Cell Distribution Width 12.5% (12.3-15.4) Platelet Count 198bil/L (150-400) Neutrophils (%) (Auto) 53.4% (40-74) Lymphocytes (%) (Auto) 28.7% (14-46) Monocytes (%) (Auto) 9.8% (4-12) Eosinophils (%) (Auto) 7.3% (0-5) Basophils (%) (Auto) 0.5% (0-3) Sodium Level 141mEq/L (134-144) Potassium Level 3.5mEq/L (3.5-5.2) Chloride Level 106mEq/L (97-108) Carbon Dioxide Level 20mmol/L (18-29) Blood Urea Nitrogen 10mg/dL (8-27) Creatinine 0.64mg/dL (0.76-1.27) Estimat Glomerular Filtration Rate 129mL/min (>59) Glucose Level 101mg/dL (60-99) Calcium Level 9.2mg/dL (8.5-10.1) Total Bilirubin 0.6mg/dL (0.0-1.2) Aspartate Amino Transf (AST/SGOT) 23U/L (0-50) Alanine Aminotransferase (ALT/SGPT) 23U/L (0-44) Alkaline Phosphatase 83U/L (25-160) Total Protein 6.4g/dL (6.4-8.4) Albumin 3.8g/dL (3.4-5.0) Discharge Medications Discharge Medications Lisinopril (Lisinopril) 10 Mg Tablet 10 MG PO DAILY Prescribed by: ANNETTE GARCIA DO Polyethylene Glycol 1000 (Polyethylene Glycol) 500 Gm Powder 500 GM MC DAILY ( Reported) Prazosin (Prazosin) 1 Mg Capsule 1 MG PO HS (Reported) As needed Acetaminophen (Acetaminophen) 325 Mg Tablet 650 MG PO Q4H PRN PRN For Pain ( Reported) Followup Plan Discharge Diet: Heart Healthy Discharge Activity: Home Health Phyical Therapy Patient Instructions You are going back to [facility] with [place] home health nursing, physical therapy, and occupational therapy to follow. Start home health nursing once per week for 4 weeks because you are being discharged with a new blood pressure medication and for cardiac assessment and teaching. Start home health physical therapy twice per week for 4 weeks for assessment and teaching of safe ambulation with a new walker, to assess and teach fall risk and fall recovery, and to teach home exercise programs for safe ambulation and increased endurance. Start home health occupation therapy twice per week for 4 weeks to teach safe transfers, home exercise programs, and energy conservation methods. If you develop lightheadedness, dizziness, or feel like you are going to faint, please seek medical attention. Start taking lisinopril 10 mg once daily for high blood pressure. Follow up with your primary care provider, Dr. Cosme, in 7-10 days to review your hospital stay including following up on your blood pressure, heart rate, and discuss possibly starting vitamin supplements. Follow-up Provider: Trey Cosme DO Follow-up with PCP in: 1 week Time spent Greater than 35 minutes Attending Statement The patient was seen and examined together with Dr. Garcia on 10/18/16 and I have added additional information to the note above. copies to: Trey Cosme Marissa L DO Oct 18, 2016 16:12 Madeleine Howe Oct 18, 2016 18:44
== END 2016-10-18 14:13 | disposition home or self-care (01) | DRG 208 ==
LOC: SED 10:10 → EDBD 10:10 → CCU 12:38 → PCC 10-16 10:07
PROVIDERS: ADMIT Internal Medicine; ATTEND Internal Medicine
PROC: 5A1945Z Respiratory Ventilation, 24-96 Consecutive Hours (ICD-10-PCS; principal; 2016-10-13)
PROC: 4A033R1 Measurement of Arterial Saturation, Peripheral, Percutaneous Approach (ICD-10-PCS; 2016-10-13)
PROC: 0BH18EZ Insertion of Endotracheal Airway into Trachea, Via Natural or Artificial Opening Endoscopic (ICD-10-PCS; 2016-10-13)
DX: J96.01 Acute respiratory failure with hypoxia (principal); G93.40 Encephalopathy, unspecified; E87.2 Acidosis; E87.3 Alkalosis; F02.81 Dementia in other diseases classified elsewhere, unspecified severity, with behavioral disturbance; G30.9 Alzheimer's disease, unspecified; R73.9 Hyperglycemia, unspecified; I10 Essential (primary) hypertension; Z87.891 Personal history of nicotine dependence; R00.1 Bradycardia, unspecified; E53.8 Deficiency of other specified B group vitamins